=== PATIENT | male | born 1980 | race Caucasian/White ===

== ENCOUNTER 2022-03-09 18:25 | Inpatient (IN) | payer OTHER, SELFPAY ==
[2022-03-09] VITALS (27 sets, daily range): BP systolic 170–183; BP diastolic 94–159; PULSE 69–103; RESP 11–25; TEMP 36.8; O2SAT 94–100
--- NOTE | ~2022-03-09 | XR_ITS ---
EXAMINATION: XR chest 2V Exam Date/Time: 03/09/2022 18:40 OUTCOMES SPECIALIST HISTORY: chest pain, DEFIB 2013 Comparison: 03/27/2014. RESULT: Lines, tubes, and devices: Left chest defibrillator, with intact lead. Lungs and pleura: Clear. Cardiomediastinal silhouette: Stable. Other: No acute osseous or upper abdominal finding. IMPRESSION: No acute cardiopulmonary process. Reviewed, dictated and finalized at location K. OMES SPECIALIST
--- NOTE | 2022-03-09 18:37 | PC.NURSE ---
Called [facility] requesting STAT report of defibrillator firing. Provided phone number provided to call back.
--- NOTE | 2022-03-09 18:43 | ECG_ITS ---
Measurements Intervals [place] Rate: 100 P: 61 UT: 124 QRS: 13 QRSD: 121 T: 29 QT: 352 QTc: 455 Interpretive Statements SINUS TACHYCARDIA INCOMPLETE RIGHT BUNDLE BRANCH BLOCK ABNORMAL RHYTHM ECG NO PREVIOUS ECG AVAILABLE FOR COMPARISON Electronically Signed On 03-10-2022 16:17:36 [employer]WAY [employer]ARD ASSISTANT by Filiberto Aceves M.D.
--- NOTE | 2022-03-09 18:53 | PC.NURSE ---
[employer] called and states to place donut magnet over device until they arrive.
--- NOTE | 2022-03-09 18:56 | PC.NURSE ---
pt in xray at this time.
--- NOTE | 2022-03-09 20:10 | ED.ARRPALP ---
HPI - Arrhythmia/Palpitations General Chief Complaint: Arrhythmia/Palpitations Stated Complaint: firing defib Time Seen by Provider: 03/09/22 18:28 History of Present Illness HPI narrative: Patient is a 41-year-old male who presents ER with firing of his AICD. Patient has history of Brugada and has an AICD implanted. His job training supervisor is Dr. Raymond with [facility] in [place]. Patient had taken his dog out for a walk when he felt the discharge. He had no prodromal chest pain or lightheadedness or racing the heart. He has had his AICD fired previously for syncope but did not experience at this time. Device continue to fire and he called 911. Related Data Allergies Allergy/AdvReac Type Severity Reaction Status Date / Time poison yary extract Allergy Mild Unverified 03/11/14 19:10 [facility] Past Medical History Medical History (Updated 03/09/22 @ 22:48 by Chilo Bain MD) Brugada syndrome Surgical History Surgical History (Updated 03/09/22 @ 22:48 by Chilo Bain MD) AICD (automatic cardioverter/defibrillator) present Exam Narrative: GENERAL: Anxious-appearing, well-nourished, and in no acute distress. HEAD: Normocephalic, atraumatic. ENT: Mucous membranes moist. NECK: Supple. CHEST: Clear to auscultation. No respiratory distress. HEART: Regular rate and rhythm. Normal peripheral pulses. ABDOMEN: Soft, nontender, nondistended. EXTREMITIES: Normal range of motion. No edema. SKIN: Warm, diaphoretic, no rash. NEURO: Alert and oriented x3. PSYCH: Normal mood and affect. Course Course Emergency Course: Accepted for observation by Dr. Chambers. Reevaluation(s) Reevaluation #1: [employer] rep has been out to evaluate the patient. Patient has had 15 inappropriate shocks delivered due to lead artifact. The device has been turned off by the inside technical sales representative and he recommends patient have a LifeVest placed. I have been in touch with the LifeVest inside technical sales representative and have placed an order. Date: 03/09/22 Time: 21:13 Reevaluation #2: SPoke with Dr. Raymond, has no additional recommendations. Feels patient just needs observation till LifeVest can be placed and then he can help refer patient to EP physician to fix his lead. Does not feel patient requires transfer. Date: 03/09/22 Time: 22:16 Vital Signs Vital signs: Vital Signs Pulse Rate 103 H 03/09/22 18:20 Respiratory Rate 17 03/09/22 18:20 Pulse Oximetry 99 03/09/22 18:20 Temperature 98.2 F 03/09/22 22:45 Pulse Rate 85 03/09/22 22:45 Respiratory Rate 16 03/09/22 22:45 Blood Pressure 174/159 H 03/09/22 22:45 Pulse Oximetry 97 03/09/22 22:45 MDM - Arrhythmia/Palpitations Lab Data 03/09/22 20:36 03/09/22 20:36 Labs: Lab Results 03/09/22 03/09/22 03/09/22 Range/Units 20:36 20:36 20:36 WBC 8.8 (4.5-10.0) K/mm3 RBC 4.58 L (4.6-6.20) M/mm3 Hgb 14.1 (14.0-18.0) g/dL Hct 41.3 L (42.0-52.0) % MCV 90.2 (80-100) fl MCH 30.8 (26-34) pg MCHC 34.1 (32-36) g/dl RDW 12.9 (11.5-14.5) % Plt Count 178 (150-375) k/mm3 MPV 9.0 (7.4-10.4) fl Immature Gran % (Auto) 0.3 (0-0.5) % Neut % (Auto) 82.7 H (45.5-73.1) % Lymph % (Auto) 10.6 L (18.3-44.2) % [place] % (Auto) 5.7 (2.6-8.5) % Eos % (Auto) 0.5 (0-4.4) % Baso % (Auto) 0.2 (0.2-1.2) % Lymph # (Auto) 0.94 (0.9-3.2) K/mm3 [place] # (Auto) 0.5 (0.1-0.6) K/mm3 Eos # (Auto) 0.0 (0-0.3) K/mm3 Baso # (Auto) 0.0 (0.0-0.1) K/mm3 Abs Immat Gran (auto) 0.03 (0.00-0.031) K/mm3 Absolute Neuts (auto) 7.3 H (1.3-6.7) K/mm3 Absolute Nucleated RBC 0.0 (0.0-0.012) K/mm3 Nucleated RBC % 0.0 (0.0-0.2) % PT 13.0 (11.1-14.7) Seconds INR 1.0 APTT 20.0 L (22.3-36.8) SECONDS Sodium 137 (137-145) mmol/L Potassium 3.8 (3.4-5.0) mmol/L Chloride 110 H (98-107) mmol/L Carbon Dioxide 22 (22-30) mmol/L Anion Gap 5 L (8-16) mmo
[2022-03-09 20:41] LABS: Basophils Percent Auto 0.2 % (0.2-1.2); Eosinophils Percent Auto 0.5 % (0-4.4); Hematocrit 41.3 % (42.0-52.0); Hemoglobin 14.1 g/dL (14.0-18.0); Immature Granulocyte Absolute 0.03 K/mm3 (0.00-0.031); Immature Granulocyte Percent A 0.3 % (0-0.5); Lymphocytes Absolute Auto 0.94 K/mm3 (0.9-3.2); Lymphocytes Percent Auto 10.6 % (18.3-44.2); Mean Corpuscular HGB Conc 34.1 g/dl (32-36); Mean Corpuscular Hemoglobin 30.8 pg (26-34); Mean Corpuscular Volume 90.2 fl (80-100); Monocytes Absolute Auto 0.5 K/mm3 (0.1-0.6); Monocytes Percent Auto 5.7 % (2.6-8.5); Neutrophils Absolute Auto 7.3 K/mm3 (1.3-6.7); Neutrophils Percent Auto 82.7 % (45.5-73.1); Platelet Count Result 178 k/mm3 (150-375); Red Blood Count 4.58 M/mm3 (4.6-6.20); Red Cell Distribution Width 12.9 % (11.5-14.5); White Blood Count 8.8 K/mm3 (4.5-10.0)
[2022-03-09 20:53] LABS: Alanine Aminotransferase 31 U/L (6-50); Albumin Level 4.3 g/dL (3.5-5.1); Alkaline Phosphatase 71 U/L (38-126); Anion Gap 5 mmol/L (8-16); Aspartate Amino Transferase 39 U/L (17-59); Bilirubin,Total 0.4 mg/dL (0.2-1.3); Blood Urea Nitrogen 18 mg/dL (9-20); Calcium 8.1 mg/dL (8.4-10.2); Carbon Dioxide 22 mmol/L (22-30); Chloride 110 mmol/L (98-107); Estimated CRCL calculation 131 ml/min; Estimated Glomerular Filt Rate > 60; Glucose 104 mg/dL (65-110); Potassium 3.8 mmol/L (3.4-5.0); Sodium 137 mmol/L (137-145)
[2022-03-09 21:19] LABS: Troponin I 0.265 ng/mL (0.000-0.034)
--- NOTE | 2022-03-09 21:29 | PC.NURSE ---
Pt refused covid/flu swab
--- NOTE | 2022-03-09 21:38 | PC.NURSE ---
Patient refused COVID swab with ARIAS Esposito in the room. Patient states he will just wait to get a vest because he will not have a COVID swab.
[2022-03-09 23:22] LABS: Troponin I 0.447 ng/mL (0.000-0.034)
--- NOTE | 2022-03-09 23:28 | PC.NURSE ---
Patient states he will only do a throat COVID swab ED Charge aware so is EDP
[2022-03-10] VITALS (13 sets, daily range): BP systolic 146–180; BP diastolic 79–103; PULSE 59–93; RESP 14–33; TEMP 36.2–36.7; O2SAT 96–100; BMI 34.4
--- NOTE | 2022-03-10 00:52 | PC.NURSE ---
03/10/2022 @ 0049 ALL DOCUMENTATION REQUESTED BY [employer] FAXED TO REQUESTED BY REP WHALEN ([phone]).
--- NOTE | 2022-03-10 01:06 | ADMGEN ---
This patient, Eran German, was admitted to IMU Room 201-01. Patient/family oriented to hospital policies and general routines including ID bracelet, bed and alarms, visiting hours, pain management, procedures, bathroom and other care routines, personal items, smoking policy, room service/diet, and visiting hours. Information on how to activate the Rapid Response Team has been discussed. Patient/Family are encouraged to report perceived risks to care and to ask questions if they do not understand what they are told or what they should do.
[2022-03-10 02:20] LABS: Troponin I 0.529 ng/mL (0.000-0.034)
--- NOTE | 2022-03-10 09:45 | PC.NURSE ---
Plan of care discussed. Life Vest employee in route. Patient to be discharged once
--- NOTE | 2022-03-10 13:51 | PM.CNCAR ---
Assessment and Plan Assessment and plan (1) Inappropriate discharge of implantable cardioverter-defibrillator (ICD): Code(s): T82.198A - Other mechanical complication of other cardiac electronic device, initial encounter Status: Acute Plan LifeVest ordered. Patient can be discharged after he receives the lifevest. History of Present Illness History of Present Illness Consult date/time: 03/10/22 13:51 Requesting physician: Chilo Bain MD Consult reason: Other (ICD shocks) Reason For Visit: Inappropriate discharge of AICD Narrative: Patient is a 41-year-old male with a history of CAD, history of ventricular fibrillation cardiac arrest due to Brugada syndrome s/p ICD who presented with 15 ICD shocks. Patient states he was feeling completely fine, and then all of a sudden felt ICD shocks when he was out walking his dog. [employer] rep interrogated device in the ER and interrogation shows ICD shocks were due to lead malfunction. The device has been deactivated by the rep. Patient's EP physician, Dr. Raymond, has been made aware and recommend LifeVest with outpatient EP follow-up. Review of Systems Review of Systems: 12-point ROS obtained. Negative, unless stated in HPI. [facility] Past Medical History Medical History Brugada syndrome Surgical History Surgical History AICD (automatic cardioverter/defibrillator) present Family History Family History Father Hypertension Sibling Leukemia Social History Social History Smoking status: Former smoker Alcohol intake: current Drinks per week: 1 Substance use: current Substance use type: does not use Lack of Transportation: No Lack of Food: Never True Current Housing: I Have Housing Concerned About Future Housing: No Difficulty Paying Gas/Electric Bills: No Difficulty Paying for Meds: No Currently Unemployed: No Education: High School Diploma/GED Difficulty w/ Childcare or Family Care: No Spiritual care concerns: No Meds Home Medications and Allergies Home Medications Medication Instructions Recorded Confirmed Type aspirin 81 mg tablet,delayed 81 mg PO DAILY 03/10/22 03/10/22 History release (Adult Low Dose Aspirin) carvedilol 25 mg tablet 25 mg PO BID 03/10/22 03/10/22 History lisinopril 40 mg tablet 40 mg PO DAILY 03/10/22 03/10/22 History omega-3 fatty acids-fish oil 684 1 cap PO DAILY 03/10/22 03/10/22 History mg-1,200 mg capsule,delayed release simvastatin 20 mg tablet 20 mg PO QHS 03/10/22 03/10/22 History Allergies Allergy/AdvReac Type Severity Reaction Status Date / Time poison yary extract Allergy Mild Rash Verified 03/10/22 05:16 Vital Signs Vital Signs - 24 hr 03/09/22 18:20 03/09/22 19:30 03/09/22 19:06 Temperature Pulse Rate 103 H 75 81 Respiratory Rate 17 20 25 H Blood Pressure Pulse Oximetry 99 95 98 Oxygen Delivery 03/09/22 19:15 03/09/22 19:45 03/09/22 20:00 Temperature Pulse Rate 74 72 78 Respiratory Rate 18 15 15 Blood Pressure Pulse Oximetry 98 97 97 Oxygen Delivery 03/09/22 20:03 03/09/22 20:15 03/09/22 20:30 Temperature Pulse Rate 70 77 69 Respiratory Rate 13 22 H 14 Blood Pressure 171/115 H Pulse Oximetry 94 97 96 Oxygen Delivery 03/09/22 20:32 03/09/22 20:45 03/09/22 21:25 Temperature Pulse Rate 70 71 80 Respiratory Rate 14 16 18 Blood Pressure 175/103 H 170/103 H Pulse Oximetry 97 97 97 Oxygen Delivery 03/09/22 22:45 03/09/22 21:00 03/09/22 21:02 Temperature 36.8 C Pulse Rate 85 69 74 Respiratory Rate 16 18 19 Blood Pressure 174/159 H 170/103 H Pulse Oximetry 97 99 99 Oxygen Delivery 03/09/22 21:15 03/09/22 21:53 03/09/22 22:00 Temperature Pulse Rate 76 77 71 Respiratory Rate 13 17 17 [place]
--- NOTE | 2022-03-10 17:13 | PM.DS ---
DS: Admitting Diagnosis Discharge Date 03/10/2022 Admitting Diagnosis Defibrillator firing DS: Discharge Diagnosis Discharge Diagnosis (1) Inappropriate discharge of implantable cardioverter-defibrillator (ICD): Code(s): T82.198A - Other mechanical complication of other cardiac electronic device, initial encounter Status: Acute (2) Elevated troponin: Code(s): R77.8 - Other specified abnormalities of plasma proteins Status: Acute Plan Patient has elevated troponin due to inappropriate firing of his defibrillator. Defibrillator has been inactivated. Patient being monitored in IMU until LifeVest can be placed prior to discharge. The patient will then be referred to his primary liquid natural gas plant operator in [facility] for ET evaluation up in [place]. There is no need for cardiology consultation during the patient's current hospitalization as a LifeVest has already been ordered. There is no need to trend troponins given the patient's troponin elevation is due to known miss firing of his defibrillator. Patient can be discharged once LifeVest has been obtained and placed. DS: Summary Hospital Course Reason for hospitalization: Defibrillator firing Narrative: 41-year-old male with past medical history of bronchitis in room with history of cardiac arrest 7 years ago with subsequent defibrillator placement.? Patient had no firings of his defibrillator prior to today.? He knows that he at least had 7 firings of his defibrillator when he was out walking his dog.? He had no prodrome all symptoms, chest pain, shortness breast, lightheadedness or racing of his heart.? His defibrillator was interrogated in the ER and it was found that his defibrillator was inappropriately firing.? His defibrillator was turned off by the manufacture.? His troponin was elevated but this was presumed to be due to repeated firings of his defibrillator.? The patient's liquid natural gas plant operator at [facility] was contacted and stated he wanted the patient have a life vest in place.? There was no need for cardiology consult here as the order for the life vest had already been placed by the ER physician.? The patient otherwise is not having any symptoms.? On exam he did have a crowded posterior oropharynx and does admit the does occasionally snore.? He denies significant daytime fatigue or sleepiness.? He has not had any lower extremity swelling, orthopnea or paroxysmal nocturnal dyspnea. Hospital Course: patient had inappropriate discharge of ICD, patient was seen by liquid natural gas plant operator recommended LifeVest and patient can be discharged to follow up with his liquid natural gas plant operator. patient is clinically stable, will discharge patient today. Time Spent with Patient Time attestation: Total time spent providing and/or coordinating discharge services: Exam Narrative: Patient is comfortable, NAD HEENT: eyes are clear and none icteric LUNGS:CTA HEART: RR S1S2 ABD: BS+, Soft and nontender Lower extremities: no edema SKIN: nonjaundiced Neuro: grossly intact. DS: Data Data Completed and Pending Labs on day of discharge: Labs from last 24 hours 03/10/22 03/09/22 03/09/22 01:26 22:34 20:36 WBC RBC Hgb Hct MCV MCH MCHC RDW Plt Count MPV Immature Gran % (Auto) Neut % (Auto) Lymph % (Auto) [place] % (Auto) Eos % (Auto) Baso % (Auto) Lymph # (Auto) [place] # (Auto) Eos # (Auto) Baso # (Auto) Abs Immat Gran (auto) Absolute Neuts (auto) Absolute Nucleated RBC Nucleated RBC % PT INR APTT Sodium Potassium Chloride Carbon Dioxide Anion Gap BUN Creatinine Estim Creat Clear Calc Estimated GFR Glucose Calcium Total Bilirubin AST ALT Alkaline Phosphatase Troponin I 0.529 H* 0.447 H* D 0.265 H* Total Protein Albumin 03/09/22 03/09/22 03/09/22 20:36 20:36 20:36 WBC 8.8 RBC 4.58 L Hgb 14.1 Hct
--- NOTE | 2022-03-19 20:34 | PM.IMHP ---
H&P: HPI History of Present Illness Date/Time: 03/10/22 06:50 Chief Complaint: Defibrillator firing Narrative: 41-year-old male with past medical history of bronchitis in room with history of cardiac arrest 7 years ago with subsequent defibrillator placement. Patient had no firings of his defibrillator prior to today. He knows that he at least had 7 firings of his defibrillator when he was out walking his dog. He had no prodrome all symptoms, chest pain, shortness breast, lightheadedness or racing of his heart. His defibrillator was interrogated in the ER and it was found that his defibrillator was inappropriately firing. His defibrillator was turned off by the manufacture. His troponin was elevated but this was presumed to be due to repeated firings of his defibrillator. The patient's industrial engineering manager at [facility] was contacted and stated he wanted the patient have a life vest in place. There was no need for cardiology consult here as the order for the life vest had already been placed by the ER physician. The patient otherwise is not having any symptoms. On exam he did have a crowded posterior oropharynx and does admit the does occasionally snore. He denies significant daytime fatigue or sleepiness. He has not had any lower extremity swelling, orthopnea or paroxysmal nocturnal dyspnea. This is a late entry. Patient was seen and examined on 03/10/2022 just before 07:00am. Review of Systems Review of Systems: 10 systems were reviewed with pertinent positives and negatives per HPI. Except as documented in the HPI, all other systems were reviewed and are negative. [facility] Past Medical History Medical History Brugada syndrome Surgical History Surgical History AICD (automatic cardioverter/defibrillator) present Family History Family History Father Hypertension Sibling Leukemia Social History Social History Smoking status: Former smoker Alcohol intake: current Drinks per week: 1 Substance use: current Substance use type: does not use Lack of Transportation: No Lack of Food: Never True Current Housing: I Have Housing Concerned About Future Housing: No Difficulty Paying Gas/Electric Bills: No Difficulty Paying for Meds: No Currently Unemployed: No Education: High School Diploma/GED Difficulty w/ Childcare or Family Care: No Spiritual care concerns: No Meds Home Medications and Allergies Home Medications Medication Instructions Recorded Confirmed Type aspirin 81 mg tablet,delayed 81 mg PO DAILY 03/10/22 03/10/22 History release (Adult Low Dose Aspirin) carvedilol 25 mg tablet 25 mg PO BID 03/10/22 03/10/22 History lisinopril 40 mg tablet 40 mg PO DAILY 03/10/22 03/10/22 History omega-3 fatty acids-fish oil 684 1 cap PO DAILY 03/10/22 03/10/22 History mg-1,200 mg capsule,delayed release simvastatin 20 mg tablet 20 mg PO QHS 03/10/22 03/10/22 History Allergies Allergy/AdvReac Type Severity Reaction Status Date / Time poison yary extract Allergy Mild Rash Verified 03/10/22 05:16 Vital Signs Temp 97.8 pulse 63 respiratory rate 16 blood pressure 146/79 pulse ox 98% on room air Exam Narrative: Weight 115.4 kg BMI 34.5 Const: Other: No acute distress, obese HENMT: Other: Crowded posterior oropharynx, mucous membranes are moist, no oral pharyngeal erythema Eyes: Other: Pupils are equal and reactive, no scleral icterus, no conjunctival pallor Neck: Other: Large neck circumference, supple, trachea midline Chest: Other: Clear to auscultation bilaterally, no increased work of breathing Cardio: Other: Regular rate, regular rhythm, 2+ bilateral radial pedal pulses,, no murmurs GI: Other: Soft, nontender, nondistended, positive
== END 2022-03-10 17:23 | disposition home or self-care (01) | DRG 206 ==
LOC: ANHED 22:48 → ANHIMU 03-10 00:25
PROVIDERS: Admitting Provider Internal Medicine; Emergency Provider Emergency Medicine; Visit Provider Family Medicine
DX: T82.198A Other mechanical complication of other cardiac electronic device, initial encounter (principal); I25.10 Atherosclerotic heart disease of native coronary artery without angina pectoris; I49.8 Other specified cardiac arrhythmias; Z87.891 Personal history of nicotine dependence
CPT/HCPCS: 36415; 71046; 80053; 84484; 85025; 85610; 85730; 93005; 99285

== ENCOUNTER 2022-08-13 14:07 | Observation (INO) | payer OTHER, SELFPAY ==
--- NOTE | ~2022-08-13 | US_ITS ---
EXAMINATION: US paracentesis abd w/image DATE: 08/13/2022 19:51 INDICATION: Ascites. TECHNIQUE: The procedure and its risks and benefits were discussed with the patient. Potential risks discussed included bleeding and infection. The skin was prepped and draped in sterile fashion. 1% lid ocaine was used for local anesthesia. Under ultrasound guidance, a 5 Fr catheter with trochar was adv anced into the ascites in the right upper quadrant. Fluid was aspirated into vacuum bottles. The cath eter was removed, and a dressing was applied. There were no immediate complications. FINDINGS: Ultrasound images demonstrate ascites and the catheter within the fluid. IMPRESSION: 1. Successful ultrasound-guided paracentesis yielding 250 mL of clear yellow fluid. Reviewed, dictated and finalized at location A. IMPRESSION: 1. Successful ultrasound-guided paracentesis yielding 250 mL of clear yellow f luid.
--- NOTE | ~2022-08-13 | CT_ITS ---
EXAMINATION: CT abdomen pelvis w con DATE: 08/13/2022 17:14 INDICATION: Diffuse upper abdominal pain TECHNIQUE: Computed tomography (CT) of the abdomen and pelvis was performed with 100 mL Omnipaque-350 intravenous contrast. Automated exposure control and iterative reconstruction technique were employe d. The dose-length product was 942.76 mGy-cm. COMPARISON: None FINDINGS: 3 mm right lower lobe pulmonary nodule. There appears be re-4 mm likely embolized metallic foreign bhargavi dy within a pulmonary artery and the anterobasilar segment of the right lower lobe. Heart size is nor mal. No pericardial or pleural effusion. Cardiac pacemaker/defibrillator lead with distal tip near th e apex of the right ventricle. Small to moderate amount of ascites scattered throughout the abdomen a nd pelvis. This has relatively simple fluid attenuation in the upper abdomen but with higher attenuat ion at the deep pelvis suggesting an exudative process or hemoperitoneum. No free intraperitoneal gas or abscess. Liver, gallbladder, spleen, pancreas, bilateral adrenal glands and left kidney are mukesh l. 1.5 cm right renal cyst. Scattered fluid throughout the small bowel without dilation to suggest ob struction. There are multiple loops of ileum in the right abdomen demonstrating edematous-appearing w all thickening consistent with an enteritis. Colon and appendix are normal. Bladder is normal. No pat hologically enlarged abdominal or pelvic lymphadenopathy. Bones are unremarkable. IMPRESSION: 1. Edematous-appearing wall thickening involving multiple loops of small bowel throughout the abdomen and pelvis with ileal predominance consistent with a nonspecific enteritis which is most likely infe ctious or inflammatory in etiology. 2. Small to moderate amount of complex ascites with increased density in the dependent pelvis which c ould be either infectious/inflammatory in etiology or hemoperitoneum. 3. Small likely embolized metallic foreign body in the right lower lobe. Reviewed, dictated and finalized at location A. IMPRESSION: 1. Edematous-appearing wall thickening involving multiple loops of small bowel throughout the abdomen and pelvis with ileal predominance consistent with a non specific enteritis which is most likely infectious or inflammatory in etiology. 2. Small to moderate amount of complex ascites with increased density in the de pendent pelvis which could be either infectious/inflammatory in etiology or hem operitoneum. 3. Small likely embolized metallic foreign body in the right lower lobe.
[2022-08-13 14:16] VITALS: BP 154/109; PULSE 103; RESP 18; TEMP 36.5; O2SAT 97
--- NOTE | 2022-08-13 16:03 | ED.NAVMDI ---
HPI - Nausea/Vomiting/Diarrhea General Chief complaint: Nausea/Vomiting/Diarrhea <RIKY Ovalle Last Filed: 08/13/22 19:12> Stated complaint: GI upset, bloating <RIKY Ovalle Last Filed: 08/13/22 19:12> Time Seen by Provider: 08/13/22 15:46 <RIKY Ovalle Last Filed: 08/13/22 19:12> History of Present Illness HPI Narrative: Patient is a 42-year-old male here for evaluation of epigastric abdominal pain for the past 4 days. Patient states that the pain is intermittent in nature, described as a cramping bloating sensation. He also reports numerous episodes of diarrhea, but no nausea or vomiting. No history of abdominal surgeries. Patient took some Imodium with improvement of his diarrhea but was hesitant to keep taking this because of his history of Brugada syndrome and he was unaware of this would precipitate arrhythmias. No recent antibiotic use. <RIKY Ovalle Last Filed: 08/13/22 19:12> Related Data Home medications: Home Medications Medication Instructions Recorded Confirmed aspirin 81 mg tablet,delayed 81 mg PO DAILY 03/10/22 08/13/22 release (Adult Low Dose Aspirin) carvedilol 25 mg tablet 25 mg PO BID 03/10/22 08/13/22 lisinopril 40 mg tablet 40 mg PO DAILY 03/10/22 08/13/22 omega-3 fatty acids-fish oil 684 1 cap PO DAILY 03/10/22 08/13/22 mg-1,200 mg capsule,delayed release simvastatin 20 mg tablet 20 mg PO QHS 03/10/22 08/13/22 <RIKY Ovalle Last Filed: 08/13/22 19:12> Allergies/Adverse reactions: Allergies Allergy/AdvReac Type Severity Reaction Status Date / Time poison yary extract Allergy Mild Rash Verified 03/10/22 05:16 <RIKY Ovalle Last Filed: 08/13/22 19:12> Review of Systems Review of Systems: Gen: Denies fevers or chills Eyes: Denies eye pain or visual change ENT: Denies congestion Respiratory: Denies shortness of breath or cough CV: Denies chest pain or palpitations GI: Reports abdominal pain and diarrhea : denies burning, urgency, frequency or hematuria Musculoskeletal: Denies back pain or muscle pain Neuro: Denies numbness, tingling, weakness or focal weakness Skin: Denies rash Except as documented, all other systems reviewed and negative <Amara Davis PA-C - Last Filed: 08/13/22 19:12> [facility] Past Medical History Medical History: Medical History (Updated 08/14/22 @ 00:07 by Jane Erickson MD) Brugada syndrome <Amara Davis PA-C - Last Filed: 08/13/22 19:12> Surgical History Surgical History: Surgical History AICD (automatic cardioverter/defibrillator) present <Amara Davis PA-C - Last Filed: 08/13/22 19:12> Family History Family History: Family History (Updated 08/13/22 @ 22:37 by Elida Villar RN) Father Hypertension Sibling Leukemia Other Colon cancer <Amara Davis PA-C - Last Filed: 08/13/22 19:12> Social History Social History: Social History Smoking status: Former smoker Tobacco type: cigarettes Alcohol intake: current Drinks per week: 8 Substance use: never Substance use type: does not use Lack of Transportation: No Lack of Food: Never True Current Housing: I Have Housing Concerned About Future Housing: No Difficulty Paying Gas/Electric Bills: No Difficulty Paying for Meds: No Currently Unemployed: No Education: High School Diploma/GED Difficulty w/ Childcare or Family Care: No Spiritual care concerns: No <Amara Davis PA-C - Last Filed: 08/13/22 19:12> Exam Narrative: APPEARANCE: Well appearing, no pain in distress, well-nourished. Head: Normocephalic and atraumatic. EYES: PERRLA/EOMI, conjunctivae clear NOSE: No nasal drainage EARS: External ear normal in appearance THROAT: Orophar
--- NOTE | 2022-08-13 16:04 | PC.NURSE ---
Pt ambulates into ER c/o n/d and abd pain. States on Wednesday evening after eating dinner pt felt like he ate too fast and felt his meal sitting in his stomach. States he was was also having difficulties releasing gas that night. States the next morning he awoke and was able to belch and have flatulence, but started having stomach pain and feeling very nauseous. States the pain has been off and on. Denies any vomiting. States he took Imodium Wednesday night and had relief from the diarrhea until 1300 today. Pain is in the URQ and describes it as pressure that ramps up and relieves it self on it's on.
--- NOTE | 2022-08-13 16:20 | PC.NURSE ---
While attempting an IV, pt became dizzy, light headed, and nauseous. Vitals obtained.
[2022-08-13 16:22] VITALS: BP 79/45; PULSE 65; RESP 18; O2SAT 98
[2022-08-13] MEDS: SODIUM CHLORIDE 0.9% IV 1,000 ML 999 ML IV CONT ×2 (16:45→18:06)
[2022-08-13] MEDS: DICYCLOMINE HCL INJ 20 MG/2 ML VIAL IM (16:45)
[2022-08-13 16:52] LABS: Basophils Percent Auto 0.4 % (0.2-1.2); Eosinophils Absolute Auto 0.3 K/mm3 (0-0.3); Eosinophils Percent Auto 2.7 % (0-4.4); Hematocrit 47.1 % (42.0-52.0); Hemoglobin 16.6 g/dL (14.0-18.0); Immature Granulocyte Absolute 0.04 K/mm3 (0.00-0.031); Immature Granulocyte Percent A 0.4 % (0-0.5); Lymphocytes Absolute Auto 1.25 K/mm3 (0.9-3.2); Lymphocytes Percent Auto 12.8 % (18.3-44.2); Mean Corpuscular HGB Conc 35.2 g/dl (32-36); Mean Corpuscular Hemoglobin 31.3 pg (26-34); Mean Corpuscular Volume 88.7 fl (80-100); Mean Platelet Volume 9.9 fl (7.4-10.4); Monocytes Absolute Auto 1.1 K/mm3 (0.1-0.6); Neutrophils Absolute Auto 7.1 K/mm3 (1.3-6.7); Neutrophils Percent Auto 72.7 % (45.5-73.1); Platelet Count Result 263 k/mm3 (150-375); Red Blood Count 5.31 M/mm3 (4.6-6.20); Red Cell Distribution Width 12.1 % (11.5-14.5); White Blood Count 9.8 K/mm3 (4.5-10.0)
[2022-08-13 16:58] LABS: Alanine Aminotransferase 20 U/L (6-50); Albumin Level 4.5 g/dL (3.5-5.1); Alkaline Phosphatase 39 U/L (38-126); Anion Gap 10 mmol/L (8-16); Aspartate Amino Transferase 26 U/L (17-59); Bilirubin,Total 0.7 mg/dL (0.2-1.3); Blood Urea Nitrogen 20 mg/dL (9-20); Calcium 8.6 mg/dL (8.4-10.2); Carbon Dioxide 24 mmol/L (22-30); Chloride 99 mmol/L (98-107); Estimated Glomerular Filt Rate > 60; Glucose 123 mg/dL (65-110); Lipase 47 U/L (23-300); Sodium 133 mmol/L (137-145)
[2022-08-13 17:08] LABS: Appearance Urine Cloudy (Clear); Bacteria Urine None Seen /hpf; Bilirubin Urine 2+ (Negative); Blood Urine Negative (Negative); Color Urine Dark Yellow (Yellow); Glucose Urine UA Negative (Negative); Ketones Urine Trace mg/dL (Negative); Leukocyte Esterase Ur Trace LEU/UL (Negative); Mucus Urine Present /lpf; Need Manual Microscopic Reviewed; Nitrate Urine Negative (Negative); Protein Urine 1+ mg/dL (Negative); RBC Urine 0-2 /hpf (0-2); Squamous Epithelial Cell Urine None seen /hpf (Few); WBC Urine 0-5 /hpf
[2022-08-13 17:09] LABS: Add Urine Microscopic? YES
[2022-08-13 18:03] VITALS: BP 101/59; PULSE 63; RESP 16; O2SAT 96
[2022-08-13 18:18] LABS: INR 1.1; Partial Thromboplastin Time 27.4 SECONDS (22.3-36.8); Prothrombin Time 14.9 Seconds (11.1-14.7)
[2022-08-13 18:31] LABS: Lactic Acid Reflex 1.4 mmol/L (0.7-2.0)
--- NOTE | 2022-08-13 18:40 | PC.NURSE ---
Ultrasound called and stated eta of 15-20 min and will come get patient for paracentesis. Pt and LINDSEY Maloney made aware.
[2022-08-13] MEDS: PIPERACILLN/TAZ 3.375GM/NS50ML 3.375 GM/50 ML BAG IVPB (18:45)
[2022-08-13 19:58] VITALS: BP 147/75; PULSE 63; RESP 17; O2SAT 100
--- NOTE | 2022-08-13 20:28 | PM.IMHP ---
H&P: HPI History of Present Illness Date/Time: 08/13/22 20:28 Chief Complaint: Abdominal pain Narrative: This is a 42-year-old male with past medical history significant for Brugada criteria, AICD implantation, presents to the emergency room due to abdominal pain localized to the periumbilical area it is cramping accompanied by watery diarrhea 2-4 bowel movements for the last 2 days or so, patient denies any fevers, rigors, chills, phlegm or blood in the stools, no coffee-ground emesis, no hematemesis, no melena, no bright red blood per rectum, no nausea, no vomiting, no weight loss, no recent travel, no camping. preliminary workup was significant for CT of abdomen and pelvis was reported as: EXAMINATION: CT abdomen pelvis w con DATE: 08/13/2022 17:14 INDICATION: Diffuse upper abdominal pain TECHNIQUE: Computed tomography (CT) of the abdomen and pelvis was performed with 100 mL Omnipaque-350 intravenous contrast. Automated exposure control and iterative reconstruction technique were employed. The dose-length product was 942.76 mGy-cm. COMPARISON: None FINDINGS: 3 mm right lower lobe pulmonary nodule. There appears be re-4 mm likely embolized metallic foreign body within a pulmonary artery and the anterobasilar segment of the right lower lobe. Heart size is normal. No pericardial or pleural effusion. Cardiac pacemaker/defibrillator lead with distal tip near the apex of the right ventricle. Small to moderate amount of ascites scattered throughout the abdomen and pelvis. This has relatively simple fluid attenuation in the upper abdomen but with higher attenuation at the deep pelvis suggesting an exudative process or hemoperitoneum. No free intraperitoneal gas or abscess. Liver, gallbladder, spleen, pancreas, bilateral adrenal glands and left kidney are normal. 1.5 cm right renal cyst. Scattered fluid throughout the small bowel without dilation to suggest obstruction. There are multiple loops of ileum in the right abdomen demonstrating edematous-appearing wall thickening consistent with an enteritis. Colon and appendix are normal. Bladder is normal. No pathologically enlarged abdominal or pelvic lymphadenopathy. Bones are unremarkable. IMPRESSION: 1. Edematous-appearing wall thickening involving multiple loops of small bowel throughout the abdomen and pelvis with ileal predominance consistent with a nonspecific enteritis which is most likely infectious or inflammatory in etiology. 2. Small to moderate amount of complex ascites with increased density in the dependent pelvis which could be either infectious/inflammatory in etiology or hemoperitoneum. 3. Small likely embolized metallic foreign body in the right lower lobe. Review of Systems Review of Systems: abdominal pain, watery diarrhea Constitutional: Constitutional: Denies chills, Denies fatigue, Denies fever(s), Denies malaise, Denies night sweats, Denies weakness and Denies weight loss Eyes: Eyes: Denies change in vision ENT: Denies dysphagia, Denies vertigo, Denies dizziness and Denies odynophagia Cardiovascular: Cardiovascular: Denies chest pain, Denies leg edema, Denies radiating jaw, neck or arm pain, Denies palpitations and Denies dyspnea Respiratory: Respiratory: Denies cough, Denies excessive phlegm production and Denies dyspnea Gastrointestinal: Gastrointestinal: Reports abdominal pain, Denies melena, Reports bloating, Denies hematochezia, Reports GI cramping, Denies dyspepsia, Denies heartburn, Reports diarrhea, Reports loose stools, Denies nausea and Denies vomiting Genitourinary: Genitourinary: Denies dysuria and Denies flank pain Musculoskeletal: Musculoskeletal: Denies myalgias Integumentary/Breasts: Skin/Breast: Denies rash Neurologic: Denies focal weakness and Denies Sensory deficit (Neuro) Psychiatric: Psychiatric: Reports no additional psychiatric complaints and Reports as per HPI Endocrine: Endocrine: Denies cold intolerance, Denies fatigue, Denies flus
[2022-08-13 20:35] LABS: Hepatitis B Surface Antigen Negative (Negative)
[2022-08-13 20:41] LABS: HAV RESULT Negative (Negative); Hepatitis B Core IgM Result Negative (Negative)
[2022-08-13 20:53] LABS: Hepatitis C Virus Antibody Negative (Negative)
--- NOTE | 2022-08-13 20:54 | PC.NURSE ---
Attempted to call report but receiving RN unavailable. Also room is not cleaned. rotary envelope machine operator notified.
[2022-08-13 21:34] LABS: Appearance Peritoneal Fluid Hazy (Clear); Color Peritoneal Fluid Yellow (Colorless); Source Peritoneal Fluid Peritoneal Fluid
[2022-08-13 21:35] LABS: Eosinophils Peritoneal Fluid 1 %; Lymphocytes Peritoneal Fluid 10 %; Macrophages Peritoneal Fluid 70 %; Neutrophils Peritoneal Fluid 19 % (0-25); Nucleated Cells Peritoneal Flu 657 /uL (0-500); RBC Peritoneal Fluid < 2000 /uL (0-100000)
[2022-08-13 22:05] VITALS: O2SAT 100
[2022-08-13 22:15] VITALS: BP 135/84; PULSE 67; RESP 16; TEMP 36.9; O2SAT 100
[2022-08-13 22:16] VITALS: BMI 34.0
--- NOTE | 2022-08-13 22:21 | ADMGEN ---
This patient, Eran German, was admitted to Medical Room 246-01. Patient/family oriented to hospital policies and general routines including ID bracelet, bed and alarms, visiting hours, pain management, procedures, bathroom and other care routines, personal items, smoking policy, room service/diet, and visiting hours. Information on how to activate the Rapid Response Team has been discussed. Patient/Family are encouraged to report perceived risks to care and to ask questions if they do not understand what they are told or what they should do.
[2022-08-13] MEDS: SODIUM CHLORIDE 0.9% IV 1,000 ML 150 ML IV CONT (22:55)
[2022-08-14] MEDS: SIMVASTATIN 20 MG TABLET PO (00:52)
[2022-08-14 06:00] VITALS: BP 127/70; PULSE 56; RESP 16; TEMP 36.6; O2SAT 99
--- NOTE | 2022-08-14 07:50 | PM.IMPN ---
Progress Note: A&P Assessment and Plan (1) Ascites: Code(s): R18.8 - Other ascites Status: Acute Assessment and Plan: status post dx paracentesis, cell count showed above 600 nucleated cells uncharacterized cultures pending, neutrophil count less than 25% patient is currently on Rocephin for BP prophylaxis LFTs wnl, check CRP, PCT, LA (2) Enteritis: Code(s): K52.9 - Noninfective gastroenteritis and colitis, unspecified Status: Acute Assessment and Plan: stool cultures are pending ova and parasite pending viral PCR pending supportive care monitor off IVF while on CLD for now (3) Elevated troponin: Code(s): R77.8 - Other specified abnormalities of plasma proteins Status: Acute Assessment and Plan: patient with history of Brugada syndrome, status post AICD placement chest pain-free, trend troponins, check ECG (4) Brugada syndrome: Code(s): I49.8 - Other specified cardiac arrhythmias Status: Acute Assessment and Plan: status post AICD (5) Watery diarrhea: Code(s): R19.7 - Diarrhea, unspecified Status: Acute Assessment and Plan: stool studies pending supportive care continue to monitor Plan DVT prophylaxis with SCDs GI prophylaxis not indicated Code status full code Subjective Date/time seen: 08/14/22 07:50 Interval history: No overnight events noted. No chest pain or shortness of breath. No nausea, vomiting or diarrhea. No fevers or chills. Review of Systems Review of Systems: 12 point review of systems was assessed and was negative except as noted in the HPI Exam Narrative: General: No acute distress, alert and oriented per baseline HEENT: Atraumatic, normocephalic, mucous membranes moist CV: Regular rate and rhythm, S1, S2 Lungs: Clear to auscultation bilaterally, no rales or crackles noted, no wheezes, good air entry Abdomen: Soft, nontender, nondistended Extremities: Normal to inspection Skin: No rashes noted, no lesions or wounds seen Psych: Euthymic, normal affect Objective Data Vital Signs Vital Signs: Vital Signs - 24 hr 08/13/22 14:16 08/13/22 16:22 08/13/22 18:03 Temperature 97.7 F Pulse Rate 103 H 65 63 Respiratory Rate 18 18 16 Blood Pressure 154/109 H 79/45 L 101/59 L Pulse Oximetry 97 98 96 Oxygen Delivery Room Air 08/13/22 19:58 08/13/22 22:15 08/13/22 22:05 Temperature 98.4 F Pulse Rate 63 67 Respiratory Rate 17 16 Blood Pressure 147/75 H 135/84 Pulse Oximetry 100 100 100 Oxygen Delivery Room Air 08/14/22 06:00 Temperature 97.8 F Pulse Rate 56 L Respiratory Rate 16 Blood Pressure 127/70 Pulse Oximetry 99 Oxygen Delivery Intake/Output Intake/Output: Intake & Output 08/11/22 08/12/22 08/13/22 08/14/22 23:59 23:59 23:59 23:59 Intake Total 2049 250 Output Total Balance 2049 - Meds/Results Medications: Active Medications Generic Name Dose Route Start Last Admin Trade Name Freq PRN Reason Stop Dose Admin Aspirin 81 mg 08/14/22 09:00 Aspirin 81 Mg Enteric Tablet PO DAILY [facility] Carvedilol 25 mg 08/14/22 09:00 Carvedilol 25 Mg Tablet PO Q12HR [facility] Dicyclomine HCl 20 mg 08/13/22 18:41 Dicyclomine Hcl Inj 20 Mg/2 Ml Vial IM Q6H PRN Abdominal Cramping Fish Oil 1 gm 08/14/22 09:00 [place] 3 Polyunsat Fatty Acids 1 Gm Cap PO QAM [facility] Ceftriaxone Sodium 1 gm in 50 mls @ 100 mls/hr 08/14/22 00:00 08/14/22 01:23 Rocephin 1 Gm/Ns 50 Ml IVPB Infused Q24H [facility] Infusion Lisinopril 40 mg 08/14/22 09:00 Lisinopril 20 Mg Tablet PO DAILY [facility] Ondansetron HCl 4 mg 08/13/22 18:41 Ondansetron Inj 4 Mg/2 Ml Vial IV PUSH Q4H PRN Nausea Simvastatin 20 mg 08/14/22 00:15 08/14/22 00:52 Simvastatin 20 Mg Tablet PO 20 mg QHS [facility] Administration Radiology Results: ITS Impressions Abdomen/P
[2022-08-14 08:12] VITALS: BP 132/65; PULSE 68
[2022-08-14] MEDS: lisinopriL 20 MG TABLET 40 MG PO (08:14)
[2022-08-14] MEDS: OMEGA 3 POLYUNSAT FATTY ACIDS 1 GM CAP PO (08:14)
[2022-08-14] MEDS: ASPIRIN 81 MG ENTERIC TABLET PO (08:14)
[2022-08-14 08:15] VITALS: PULSE 68
[2022-08-14] MEDS: carvediloL 25 MG TABLET PO (08:15)
[2022-08-14 09:46] LABS: Basophils Percent Auto 0.5 % (0.2-1.2); Eosinophils Absolute Auto 0.4 K/mm3 (0-0.3); Eosinophils Percent Auto 6.9 % (0-4.4); Hemoglobin 12.9 g/dL (14.0-18.0); Immature Granulocyte Absolute 0.01 K/mm3 (0.00-0.031); Immature Granulocyte Percent A 0.2 % (0-0.5); Lymphocytes Absolute Auto 1.52 K/mm3 (0.9-3.2); Lymphocytes Percent Auto 27.8 % (18.3-44.2); Mean Corpuscular HGB Conc 33.9 g/dl (32-36); Mean Corpuscular Hemoglobin 30.9 pg (26-34); Mean Corpuscular Volume 91.1 fl (80-100); Mean Platelet Volume 9.1 fl (7.4-10.4); Monocytes Absolute Auto 0.9 K/mm3 (0.1-0.6); Neutrophils Absolute Auto 2.6 K/mm3 (1.3-6.7); Neutrophils Percent Auto 47.6 % (45.5-73.1); Platelet Count Result 173 k/mm3 (150-375); Red Blood Count 4.17 M/mm3 (4.6-6.20); Red Cell Distribution Width 12.1 % (11.5-14.5); White Blood Count 5.5 K/mm3 (4.5-10.0)
--- NOTE | 2022-08-14 10:10 | ECG_ITS ---
Measurements Intervals [place] Rate: 60 P: 38 NH: 144 QRS: 14 QRSD: 122 T: 14 QT: 413 QTc: 413 Interpretive Statements SINUS RHYTHM INCOMPLETE RIGHT BUNDLE BRANCH BLOCK BORDERLINE ECG COMPARED TO ECG 03/09/2022 18:27:34 SINUS RHYTHM NOW PRESENT Electronically Signed On 08-14-2022 16:25:33 CDT by Christian Cota D.O.
[2022-08-14 10:21] LABS: Alanine Aminotransferase 17 U/L (6-50); Albumin Level 3.3 g/dL (3.5-5.1); Alkaline Phosphatase 31 U/L (38-126); Anion Gap 5 mmol/L (8-16); Aspartate Amino Transferase 22 U/L (17-59); Bilirubin,Total 0.4 mg/dL (0.2-1.3); Blood Urea Nitrogen 13 mg/dL (9-20); Calcium 7.7 mg/dL (8.4-10.2); Carbon Dioxide 26 mmol/L (22-30); Chloride 105 mmol/L (98-107); Estimated CRCL calculation 102 ml/min; Estimated Glomerular Filt Rate > 60; Glucose 96 mg/dL (65-110); Potassium 3.1 mmol/L (3.4-5.0); Sodium 136 mmol/L (137-145)
[2022-08-14 10:39] LABS: Troponin I < 0.012 ng/mL (0.000-0.034)
[2022-08-14 10:45] LABS: Procalcitonin 0.1 ng/mL
--- NOTE | 2022-08-14 13:38 | PM.DS ---
DS: Admitting Diagnosis Discharge Date 08/14/22 Admitting Diagnosis abdominal pain DS: Discharge Diagnosis Discharge Diagnosis (1) Ascites: Code(s): R18.8 - Other ascites Status: Acute Assessment and Plan: status post dx paracentesis, cell count showed above 600 nucleated cells uncharacterized cultures pending, neutrophil count less than 25% patient is currently on Rocephin for SBP prophylaxis LFTs wnl, check CRP, PCT, LA--all wnl (2) Enteritis: Code(s): K52.9 - Noninfective gastroenteritis and colitis, unspecified Status: Acute Assessment and Plan: stool cultures are pending ova and parasite pending viral PCR pending supportive care monitor off IVF while on CLD for now (3) Elevated troponin: Code(s): R77.8 - Other specified abnormalities of plasma proteins Status: Acute Assessment and Plan: patient with history of Brugada syndrome, status post AICD placement chest pain-free, trend troponins, check ECG (4) Brugada syndrome: Code(s): I49.8 - Other specified cardiac arrhythmias Status: Acute Assessment and Plan: status post AICD (5) Watery diarrhea: Code(s): R19.7 - Diarrhea, unspecified Status: Acute Assessment and Plan: stool studies pending supportive care continue to monitor Plan DVT prophylaxis with SCDs GI prophylaxis not indicated Code status full code DS: Summary Hospital Course Hospital Course: 42-year-old male with history of her got a status post ICD implantation is presenting with abdominal pain and watery diarrhea for [address] exam showed enteritis, ascites and diffuse anasarca through the bowel. He was noted to have dehydration. All symptoms resolved with IV fluids. Paracentesis performed, initial workup negative. He was given a dose of Rocephin for SBP prophylaxis. Initial peritoneal studies unremarkable. Mildly elevated nucleated cells. Patient eager to go home. Suspect viral etiology. Recommend close outpatient follow-up by GI for colonoscopy and to confirm resolution of patient's ascites/anasarca. Extensive time spent discussing results and pending testing with patient and family. Will d/c on cipro for 5 days in case there was an underlying bacterial infection/SBP. Educated family on importance of following up with family doctor and GI JESSA to have all testing followed up and confirm resolution. See above and med rec for details. Time Spent with Patient Time attestation: Total time spent providing and/or coordinating discharge services: Exam Narrative: General: No acute distress, alert and oriented per baseline HEENT: Atraumatic, normocephalic, mucous membranes moist CV: Regular rate and rhythm, S1, S2 Lungs: Clear to auscultation bilaterally, no rales or crackles noted, no wheezes, good air entry Abdomen: Soft, nontender, nondistended Extremities: Normal to inspection Skin: No rashes noted, no lesions or wounds seen Psych: Euthymic, normal affect DS: Data Data Completed and Pending Labs on day of discharge: Labs from last 24 hours 08/14/22 08/14/22 08/14/22 10:38 09:32 09:32 WBC 5.5 RBC 4.17 L Hgb 12.9 L D Hct 38.0 L MCV 91.1 MCH 30.9 MCHC 33.9 RDW 12.1 Plt Count 173 MPV 9.1 Immature Gran % (Auto) 0.2 Neut % (Auto) 47.6 Lymph % (Auto) 27.8 [place] % (Auto) 17.0 H Eos % (Auto) 6.9 H Baso % (Auto) 0.5 Lymph # (Auto) 1.52 [place] # (Auto) 0.9 H Eos # (Auto) 0.4 H Baso # (Auto) 0.0 Abs Immat Gran (auto) 0.01 Absolute Neuts (auto) 2.6 Absolute Nucleated RBC 0.0 Nucleated RBC % 0.0 PT INR APTT Sodium 136 L Potassium 3.1 L Chloride 105 Carbon Dioxide 26 Anion Gap 5 L BUN 13 D Creatinine 1.10 Estim Creat Clear Calc 102 Estimated GFR > 60 Glucose 96 Lactic Acid 1.0 Calcium 7.7 L Total Bilirubin 0.4
--- NOTE | 2022-08-14 16:32 | PC.NURSE ---
Dr Blanchard notified that one time dose of potassium that was ordered was NOT given prior to discharge.
[2022-08-20 20:00] LABS: Glucose Peritoneal Fluid 113 mg/dL; LDH Peritoneal Fluid 150 U/L (<63); Total Protein Peritoneal Fluid 5.2 g/dL
[2022-08-21 13:07] LABS: Amylase Peritoneal Fluid 12 U/L
[2022-08-21 22:18] LABS: Albumin Peritoneal Fluid 3.3 g/dL
== END 2022-08-14 15:55 | disposition home or self-care (01) ==
LOC: ANHED 19:12 → ANH2MED 08-14 08:00
PROVIDERS: Admitting Provider Internal Medicine; Emergency Provider Physician Assistant; Visit Provider Student in an Organized Health Care Education/Training Program
DX: R18.8 Other ascites (principal); K52.9 Noninfective gastroenteritis and colitis, unspecified; R77.8 Other specified abnormalities of plasma proteins; I49.8 Other specified cardiac arrhythmias; D64.9 Anemia, unspecified; I45.10 Unspecified right bundle-branch block; F10.90 Alcohol use, unspecified, uncomplicated; Z95.810 Presence of automatic (implantable) cardiac defibrillator; Z87.891 Personal history of nicotine dependence; Z79.82 Long term (current) use of aspirin; Z79.899 Other long term (current) drug therapy
CPT/HCPCS: 36415; 49083; 74177; 80053; 80074; 81001; 82042; 82150; 82945; 83605; 83615; 83690; 84145; 84157; 84484; 85025; 85610; 85730; 86140; 87070; 87075; 87205; 89051; 93005; 96361; 96365; 96372; 99285; A9270; G0378; G0379; J0500; J0696; J2543; J7030; Q9967

== ENCOUNTER 2022-10-22 20:18 | Inpatient (IN) | payer OTHER, SELFPAY ==
--- NOTE | ~2022-10-22 | CT_ITS ---
EXAMINATION: CT abdomen pelvis w con DATE: 10/22/2022 22:19 INDICATION: Abdomen pain with diarrhea. TECHNIQUE: Computed tomography (CT) of the abdomen and pelvis was performed with 100 cc Omnipaque 350 intravenous contrast. The dose-length product was 1056.81 mGy-cm. Automated exposure control and ite rative reconstruction technique were employed. COMPARISON: CT dated 08/13/2022. FINDINGS: Lung bases are unremarkable. Heart size normal. No significant pleural or pericardial effus ion. There is ascites. The liver, spleen, pancreas, adrenal glands and kidneys are unremarkable. There is a small exophytic right renal cyst. Gallbladder is present. No significant vascular abnormality. There is persistent ab normal distal small bowel wall thickening and mucosal hyperemia which has progressed, consistent with enteritis, most likely infectious or inflammatory. No free air. IMPRESSION: 1. Interval progression of lung segment of abnormal distal bowel wall thickening and mucosal hyperemi a, compatible with enteritis, most likely infectious or inflammatory. 2: Moderate ascites. Reviewed, dictated and finalized at location A. IMPRESSION: 1. Interval progression of lung segment of abnormal distal bowel wall thickenin g and mucosal hyperemia, compatible with enteritis, most likely infectious or i nflammatory. 2: Moderate ascites.
--- NOTE | ~2022-10-22 | XR_ITS ---
XR small bowel follow through DATE: 10/24/2022 13:46 INDICATION: Enteritis. Abdominal pain, diarrhea. TECHNIQUE: COMPARISON: 10/22/2022 CT abdomen pelvis 08/13/2022 CT abdomen pelvis FINDINGS: There is normal transit of contrast material through the small bowel, with contrast materia l material reaching the colon within 2 1/2 hours. No stricture or unusual mucosal fold thickening, di verticulum, ulceration or intraluminal mass lesion of the small bowel is detected. Normal appendix. IMPRESSION: No significant abnormality is demonstrated Normal appendix Reviewed, dictated and finalized at [facility]. Reviewed, dictated and finalized at location A.
--- NOTE | ~2022-10-22 | US_ITS ---
US abdomen limited DATE: 10/24/2022 10:24 INDICATION: The patient presented with an order for paracentesis. TECHNIQUE: Real-time imaging of the abdomen was performed COMPARISON: 10/22/2022 CT abdomen pelvis FINDINGS: There is a minimal amount of fluid adjacent to the liver. No accessible intra-abdominal flu id collection is available for paracentesis. The procedure therefore was canceled. IMPRESSION: No accessible site for paracentesis; minimal ascites Reviewed, dictated and finalized at [facility]. Reviewed, dictated and finalized at location A.
[2022-10-22 20:26] VITALS: BP 152/109; PULSE 107; RESP 15; TEMP 36.6; O2SAT 99
[2022-10-22 20:45] LABS: Basophils Percent Auto 0.4 % (0.2-1.2); Eosinophils Absolute Auto 0.4 K/mm3 (0-0.3); Eosinophils Percent Auto 3.1 % (0-4.4); Hematocrit 50.2 % (42.0-52.0); Hemoglobin 17.2 g/dL (14.0-18.0); Immature Granulocyte Absolute 0.03 K/mm3 (0.00-0.031); Immature Granulocyte Percent A 0.3 % (0-0.5); Lymphocytes Absolute Auto 1.51 K/mm3 (0.9-3.2); Lymphocytes Percent Auto 13.6 % (18.3-44.2); Mean Corpuscular HGB Conc 34.3 g/dl (32-36); Mean Corpuscular Hemoglobin 30.8 pg (26-34); Mean Platelet Volume 9.2 fl (7.4-10.4); Monocytes Absolute Auto 0.9 K/mm3 (0.1-0.6); Monocytes Percent Auto 8.4 % (2.6-8.5); Neutrophils Absolute Auto 8.3 K/mm3 (1.3-6.7); Neutrophils Percent Auto 74.2 % (45.5-73.1); Platelet Count Result 247 k/mm3 (150-375); Red Blood Count 5.58 M/mm3 (4.6-6.20); Red Cell Distribution Width 12.6 % (11.5-14.5); White Blood Count 11.1 K/mm3 (4.5-10.0)
[2022-10-22 20:55] LABS: Alanine Aminotransferase 17 U/L (6-50); Albumin Level 4.6 g/dL (3.5-5.1); Alkaline Phosphatase 49 U/L (38-126); Anion Gap 10 mmol/L (8-16); Aspartate Amino Transferase 26 U/L (17-59); Bilirubin,Total 0.7 mg/dL (0.2-1.3); Blood Urea Nitrogen 18 mg/dL (9-20); Calcium 8.9 mg/dL (8.4-10.2); Carbon Dioxide 22 mmol/L (22-30); Chloride 104 mmol/L (98-107); Estimated CRCL calculation 101 ml/min; Estimated Glomerular Filt Rate > 60; Glucose 109 mg/dL (65-110); Lipase 44 U/L (23-300); Potassium 4.3 mmol/L (3.4-5.0); Sodium 136 mmol/L (137-145)
--- NOTE | 2022-10-22 22:57 | ED.NAVMDI ---
HPI - Nausea/Vomiting/Diarrhea General Chief complaint: Nausea/Vomiting/Diarrhea Stated complaint: multiple complaints Time Seen by Provider: 10/22/22 21:53 Source: patient Mode of arrival: ambulatory Limitations: no limitations History of Present Illness HPI Narrative: This is a 42 year old male that presents to the ER for abdominal pain and distension. Ongoing over the last 2 days. Associated with diarrhea. Reports feeling dehydrated. Reports a similar occurrence 2 months ago for which he was hospitalized. Denies fever, hematochezia, or melena. Related Data Home Medications Medication Instructions Recorded Confirmed aspirin 81 mg tablet,delayed 81 mg PO DAILY 03/10/22 08/13/22 release (Adult Low Dose Aspirin) carvedilol 25 mg tablet 25 mg PO BID 03/10/22 08/13/22 lisinopril 40 mg tablet 40 mg PO DAILY 03/10/22 08/13/22 omega-3 fatty acids-fish oil 684 1 cap PO DAILY 03/10/22 08/13/22 mg-1,200 mg capsule,delayed release simvastatin 20 mg tablet 20 mg PO QHS 03/10/22 08/13/22 Allergies Allergy/AdvReac Type Severity Reaction Status Date / Time poison yary extract Allergy Mild Rash Verified 03/10/22 05:16 Review of Systems Review of Systems: CONSTITUTIONAL: Denies fever GASTROINTESTINAL: Reports abdominal pain, nausea, and diarrhea. GENITOURINARY: Denies dysuria All systems reviewed & are unremarkable except as noted in HPI and below PMFSH Past Medical History Medical History (Updated 10/23/22 @ 00:16 by Amara Garza PA-C) Brugada syndrome Surgical History Surgical History AICD (automatic cardioverter/defibrillator) present Family History Family History (Updated 08/13/22 @ 22:37 by Elida Villar RN) Father Hypertension Sibling Leukemia Other Colon cancer Social History Social History Smoking status: Former smoker Tobacco type: cigarettes Alcohol intake: current Drinks per week: 8 Substance use: never Substance use type: does not use Lack of Transportation: No Lack of Food: Never True Current Housing: I Have Housing Concerned About Future Housing: No Difficulty Paying Gas/Electric Bills: No Difficulty Paying for Meds: No Currently Unemployed: No Education: High School Diploma/GED Difficulty w/ Childcare or Family Care: No Spiritual care concerns: No Exam Narrative: GENERAL: Well-appearing, well-nourished, and in no acute distress. HEAD: Normocephalic, atraumatic. EYES: EOMI. CHEST: Clear to auscultation. No respiratory distress. No wheezes rales or rhonchi HEART: Regular rate and rhythm. No murmur heard. Normal peripheral pulses. ABDOMEN: Soft, nondistended, normal active bowel sounds. Mild tenderness to palpation throughout the abdomen, without guarding EXTREMITIES: Normal range of motion. No edema. SKIN: Warm, dry, no rash. NEURO: No focal deficits. Alert and oriented x3. PSYCH: Normal mood and affect Course Course Emergency Course: Patient and family updated on workup and agree with admission Consultations Consultation #1: Spoke with Dr. Benavides who will consult Date: 10/22/22 Consultation #2: Spoke with hospitalist about patient and workup who accepts admission. Would like patient started on IV antibiotics and steroids Date: 10/22/22 Vital Signs Vital signs: Vital Signs Temperature 98 F 10/22/22 20:26 Pulse Rate 107 H 10/22/22 20:26 Respiratory Rate 15 10/22/22 20:26 Blood Pressure 152/109 H 10/22/22 20:26 Pulse Oximetry 99 10/22/22 20:26 Oxygen Delivery Room Air 10/22/22 20:26 Temperature 98 F 10/22/22 20:26 Pulse Rate 76 10/22/22 23:28 Respiratory Rate 15 10/22/22 23:28 Blood Pressure 168/96 H 10/22/22 23:28 Pulse Oximetry 98 10/22/22 23:28 Oxygen Delivery Room Air 10/22/22 20:26 MDM - Nausea/Vomiting/Diarrhea MDM Narrative Medical decision catherine
[2022-10-22 23:09] LABS: Bacteria Urine None Seen /hpf; Non Pathogenic Casts 0-2; Squamous Epithelial Cell Urine None seen /hpf (Few); WBC Urine 0-5 /hpf
[2022-10-22] MEDS: SODIUM CHLORIDE 0.9% IV 1,000 ML 999 ML IV CONT (23:16)
[2022-10-22] MEDS: MORPHINE SULFATE (*CRX) 4 MG/ML INJ IV PUSH (23:25)
[2022-10-22 23:28] VITALS: BP 168/96; PULSE 76; RESP 15; O2SAT 98
[2022-10-22] MEDS: ONDANSETRON INJ 4 MG/2 ML VIAL IV PUSH (23:28)
[2022-10-22 23:30] LABS: Appearance Urine Clear (Clear); Bilirubin Urine 1+ (Negative); Blood Urine Negative (Negative); Color Urine Yellow (Yellow); Glucose Urine UA Negative (Negative); Ketones Urine 3+ mg/dL (Negative); Leukocyte Esterase Ur Negative LEU/UL (Negative); Nitrate Urine Negative (Negative); Protein Urine Trace mg/dL (Negative); Specific Grav Ur <= 1.005 (1.001-1.035); Urobilinogen Urine 0.2 mg/dL (<2.0)
[2022-10-22 23:36] LABS: Add Urine Microscopic? YES
--- NOTE | 2022-10-22 23:40 | PM.IMHP ---
H&P: HPI History of Present Illness Date/Time: 10/22/22 23:40 Chief Complaint: Abdominal pain Narrative: This is a 42-year-old male with past medical history significant for hypertension, dyslipidemia, Brugada syndrome, AICD in place. Patient presents to the emergency room due to abdominal pain and diarrhea 3 diarrhea daily for the last 2 days or so patient denies any fevers, rigors, chills, weight loss, blood or mucus in the stool, no camping. Patient is been admitted for further evaluation management and treatment. EXAMINATION: CT abdomen pelvis w con DATE: 10/22/2022 22:19 INDICATION: Abdomen pain with diarrhea. TECHNIQUE: Computed tomography (CT) of the abdomen and pelvis was performed with 100 cc Omnipaque 350 intravenous contrast. The dose-length product was 1056.81 mGy-cm. Automated exposure control and iterative reconstruction technique were employed. COMPARISON: CT dated 08/13/2022. FINDINGS: Lung bases are unremarkable. Heart size normal. No significant pleural or pericardial effusion. There is ascites. The liver, spleen, pancreas, adrenal glands and kidneys are unremarkable. There is a small exophytic right renal cyst. Gallbladder is present. No significant vascular abnormality. There is persistent abnormal distal small bowel wall thickening and mucosal hyperemia which has progressed, consistent with enteritis, most likely infectious or inflammatory. No free air. IMPRESSION: 1. Interval progression of lung segment of abnormal distal bowel wall thickening and mucosal hyperemia, compatible with enteritis, most likely infectious or inflammatory. 2: Moderate ascites. Review of Systems Review of Systems: Abdominal pain, diarrhea Constitutional: Constitutional: Denies chills, Denies fatigue, Denies fever(s), Denies night sweats and Denies poor appetite Eyes: Eyes: Denies change in vision ENT: Denies dysphagia, Denies vertigo, Denies dizziness, Denies nasal congestion, Denies nasal obstruction and Denies odynophagia Cardiovascular: Cardiovascular: Denies chest pain at rest, Denies irregular heart rhythm, Denies radiating jaw, neck or arm pain and Denies palpitations Respiratory: Respiratory: Denies cough, Denies excessive phlegm production and Denies dyspnea on exertion Gastrointestinal: Gastrointestinal: Reports abdominal pain, Denies melena, Denies bloating, Denies hematochezia, Denies coffee ground emesis, Reports GI cramping, Denies dyspepsia, Denies heartburn, Reports diarrhea, Denies nausea, Denies vomiting and Denies hematemesis Genitourinary: Genitourinary: Denies dysuria Musculoskeletal: Musculoskeletal: Denies back pain, Denies myalgias, Denies arthralgias, Denies joint swelling, Denies muscle cramps and Denies muscle weakness Integumentary/Breasts: Skin/Breast: Denies rash Neurologic: Denies focal weakness, Denies Sensory deficit (Neuro), Denies disequilibrium and Denies weakness Psychiatric: Psychiatric: Reports no additional psychiatric complaints and Reports as per HPI Endocrine: Endocrine: Denies cold intolerance, Denies excessive sweating, Denies fatigue, Denies heat intolerance and Denies polyphagia Hematologic/Lymphatic: Hematologic/Lymphatic: Reports no additional hematologic/lymphatic complaints and Reports as per HPI Allergic/Immunologic: Allergic/Immunologic: Reports no additional allergic/immunologic complaints and Reports as per HPI PMFSH Past Medical History Medical History (Updated 10/23/22 @ 03:54 by Jane Erickson MD) Brugada syndrome Surgical History Surgical History AICD (automatic cardioverter/defibrillator) present Family History Family History Father Hypertension Sibling Leukemia Other Colon cancer Social History Social History Smoking status: Former smoker Tobacco type: cigar
[2022-10-23] MEDS: methylPREDNISolone SOD SUCC 40 MG VIAL 60 MG IV PUSH (00:05)
[2022-10-23] MEDS: levoFLOXacin 750 MG/D5W 150 ML 750 MG/150 ML BAG 100 MG IVPB (00:06)
[2022-10-23] MEDS: metroNIDAZOLE 500 MG/ISO 100ML 500 MG/100 ML BAG 100 MG IVPB ×3 (00:08→16:27)
[2022-10-23 00:46] LABS: Lactic Acid Reflex 0.7 mmol/L (0.7-2.0)
--- NOTE | 2022-10-23 01:40 | ADMGEN ---
This patient, Eran German, was admitted to Medical Room 243-01. Patient/family oriented to hospital policies and general routines including ID bracelet, bed and alarms, visiting hours, pain management, procedures, bathroom and other care routines, personal items, smoking policy, room service/diet, and visiting hours. Information on how to activate the Rapid Response Team has been discussed. Patient/Family are encouraged to report perceived risks to care and to ask questions if they do not understand what they are told or what they should do.
[2022-10-23 01:48] VITALS: BP 148/88; PULSE 81; RESP 18; TEMP 36.9; O2SAT 98
[2022-10-23] MEDS: SODIUM CHLORIDE 0.9% IV 1,000 ML 125 ML IV CONT ×3 (02:06→23:30)
[2022-10-23] MEDS: HYDROmorphone HCL INJ (*CRX) 1 MG/ML SYR 0.5 MG IV PUSH (04:47)
[2022-10-23] MEDS: methylPREDNISolone SOD SUCC 125 MG VIAL 60 MG IV PUSH ×4 (05:40→23:26)
[2022-10-23 06:00] VITALS: BP 129/72; PULSE 79; RESP 18; TEMP 37; O2SAT 96
[2022-10-23 07:48] LABS: Basophils Percent Auto 0.2 % (0.2-1.2); Hematocrit 41.6 % (42.0-52.0); Hemoglobin 14.2 g/dL (14.0-18.0); Immature Granulocyte Absolute 0.02 K/mm3 (0.00-0.031); Immature Granulocyte Percent A 0.4 % (0-0.5); Lymphocytes Absolute Auto 0.55 K/mm3 (0.9-3.2); Lymphocytes Percent Auto 10.6 % (18.3-44.2); Mean Corpuscular HGB Conc 34.1 g/dl (32-36); Mean Corpuscular Hemoglobin 30.8 pg (26-34); Mean Corpuscular Volume 90.2 fl (80-100); Mean Platelet Volume 9.2 fl (7.4-10.4); Monocytes Absolute Auto 0.1 K/mm3 (0.1-0.6); Monocytes Percent Auto 1.2 % (2.6-8.5); Neutrophils Absolute Auto 4.6 K/mm3 (1.3-6.7); Neutrophils Percent Auto 87.6 % (45.5-73.1); Platelet Count Result 212 k/mm3 (150-375); Red Blood Count 4.61 M/mm3 (4.6-6.20); Red Cell Distribution Width 12.4 % (11.5-14.5); White Blood Count 5.2 K/mm3 (4.5-10.0)
[2022-10-23 07:57] LABS: Alanine Aminotransferase 16 U/L (6-50); Albumin Level 3.7 g/dL (3.5-5.1); Alkaline Phosphatase 37 U/L (38-126); Anion Gap 11 mmol/L (8-16); Aspartate Amino Transferase 25 U/L (17-59); Bilirubin,Total 0.4 mg/dL (0.2-1.3); Blood Urea Nitrogen 17 mg/dL (9-20); Calcium 8.1 mg/dL (8.4-10.2); Carbon Dioxide 21 mmol/L (22-30); Chloride 103 mmol/L (98-107); Estimated CRCL calculation 123 ml/min; Estimated Glomerular Filt Rate > 60; Glucose 140 mg/dL (65-110); Potassium 4.2 mmol/L (3.4-5.0); Sodium 135 mmol/L (137-145)
--- NOTE | 2022-10-23 09:00 | PM.IMPN ---
Progress Note: A&P Assessment and Plan (1) Enteritis: Code(s): K52.9 - Noninfective gastroenteritis and colitis, unspecified Status: Acute Assessment and Plan: Presented to the ED with complaints of abdominal pain and diarrhea for the last [address] of the abdomen and pelvis showed distal bowel wall thickening and mucosal hyeremia compatible with enterisitis, moderate ascites GI consulted Continue Levaquin and Flagyl for now Continue steroids, wean as per symptoms Clear liquid diet initiated add pain medications as indicated WBC slightly elevated at 11.1 CRP in the am Trend labs De-escalate when appropriate (2) Diarrhea: Qualifiers: Diarrhea type: unspecified type Qualified Code(s): R19.7 - Diarrhea, unspecified Code(s): R19.7 - Diarrhea, unspecified Status: Acute Assessment and Plan: Stool cultures ordered Continue antibiotic Most likely related to enteritis Continue IV fluids No noted episodes over night (3) Brugada syndrome: Code(s): I49.8 - Other specified cardiac arrhythmias Status: Acute Assessment and Plan: AICD in place History and chronic HR stable (4) Ascites: Qualifiers: Ascites type: other type Qualified Code(s): R18.8 - Other ascites Code(s): R18.8 - Other ascites Status: Acute Assessment and Plan: Seen on CT Appears to have been drained on 08/14/22 No appearance of infection according to the labs Consider paracentesis (5) Hypertension: Qualifiers: Hypertension type: primary hypertension Qualified Code(s): I10 - Essential (primary) hypertension Code(s): I10 - Essential (primary) hypertension Status: Acute Assessment and Plan: BP is elevated at 152/109 upon arrival Current BP is Carvedilol, lisinopril Continue home medication Trend BP Adjust therapy as indicated Time Spent With Patient Time: 48 minutes Time with patient: Greater than 35 minutes Subjective Date/time seen: 10/23/22 09 Interval history: 10/23/22 09 Currently patient is lying in bed. Patient stated that he is no longer having any pain, discomfort, diarrhea, fevers, sweats, chills, chest pain shortness a breath, nausea or vomiting. Patient stated that he does feel whole lot better than he did when he came in. He also stated that he would really like to have a clear soda. No pain was noted during palpation. Did talk to Dr. Benavides who stated if it appears that he looks and feels better we can try him on clear liquids at this time. 10/22/22? 23:40 This is a 42-year-old male with past medical history significant for hypertension, dyslipidemia, Brugada syndrome, AICD in place.? Patient presents to the emergency room due to abdominal pain and diarrhea 3 diarrhea daily for the last 2 days or so patient denies any fevers, rigors, chills, weight loss, blood or mucus in the stool, no camping.? Patient is been admitted for further evaluation management and treatment. Review of Systems Review of Systems: All systems reviewed & are unremarkable except as noted in HPI and below Exam Narrative: General: well-nourished, well-appearing 42-year-old male, sitting up in bed, comfortable, NARD Neuro: awake, alert and oriented x4, speech clear, no focal neuro deficits noted HEENMT: normocephalic, atraumatic, EOMI, sclerae anicteric, moist oral mucosa Respiratory: Clear to auscultation bilaterally without crackles, rhonchi or wheezes, nonlabored breathing Cardio: regular rate, regular rhythm with S1-S2 Abdomen: nondistended, normoactive bowel sounds, soft, nontender to palpation Extremities: no edema, erythema, or tenderness to palpation, DP pulses 2+ bilaterally Skin: no rashes or lesions, warm and dry Psych: appropriate mood and affect, judgment and insight intact Objective Data Vital Signs Vital Signs
--- NOTE | 2022-10-23 09:00 | P.PNIM_ITS ---
Progress Note: A&P Assessment and Plan (1) Enteritis: Code(s): K52.9 - Noninfective gastroenteritis and colitis, unspecified Status: Acute Assessment and Plan: * Presented to the ED with complaints of abdominal pain and diarrhea for the last 2 days * CT of the abdomen and pelvis showed distal bowel wall thickening and mucosal hyeremia compatible with enterisitis, moderate ascites * GI consulted * Continue Levaquin and Flagyl for now * Continue steroids, wean as per symptoms * Clear liquid diet initiated * add pain medications as indicated * WBC slightly elevated at 11.1 * CRP in the am * Trend labs * De-escalate when appropriate (2) Diarrhea: Qualifiers: Diarrhea type: unspecified type Qualified Code(s): R19.7 - Diarrhea, unspecified Code(s): R19.7 - Diarrhea, unspecified Status: Acute Assessment and Plan: * Stool cultures ordered * Continue antibiotic * Most likely related to enteritis * Continue IV fluids * No noted episodes over night (3) Brugada syndrome: Code(s): I49.8 - Other specified cardiac arrhythmias Status: Acute Assessment and Plan: * AICD in place * History and chronic * HR stable (4) Ascites: Qualifiers: Ascites type: other type Qualified Code(s): R18.8 - Other ascites Code(s): R18.8 - Other ascites Status: Acute Assessment and Plan: * Seen on CT * Appears to have been drained on 08/14/22 * No appearance of infection according to the labs * Consider paracentesis (5) Hypertension: Qualifiers: Hypertension type: primary hypertension Qualified Code(s): I10 - Essential (primary) hypertension Code(s): I10 - Essential (primary) hypertension Status: Acute Assessment and Plan: * BP is elevated at 152/109 upon arrival * Current BP is Carvedilol, lisinopril * Continue home medication * Trend BP * Adjust therapy as indicated Time Spent With Patient Time: 48 minutes Time with patient: Greater than 35 minutes Subjective Date/time seen: 10/23/22899 Interval history: 10/23/22899 Currently patient is lying in bed. Patient stated that he is no longer having any pain, discomfort, diarrhea, fevers, sweats, chills, chest pain shortness a breath, nausea or vomiting. Patient stated that he does feel whole lot better than he did when he came in. He also stated that he would really like to have a clear soda. No pain was noted during palpation. Did talk to Dr. Benavides who stated if it appears that he looks and feels better we can try him on clear liquids at this time. 10/22/22? 23:40 This is a 42-year-old male with past medical history significant for hypertension, dyslipidemia, Brugada syndrome, AICD in place.? Patient presents to the emergency room due to abdominal pain and diarrhea 3 diarrhea daily for the last 2 days or so patient denies any fevers, rigors, chills, weight loss, blood or mucus in the stool, no camping.? Patient is been admitted for further evaluation management and treatment. Review of Systems Review of Systems: All systems reviewed & are unremarkable except as noted in HPI and below Exam Narrative: General: well-nourished, well-appearing 42-year-old male, sitting up in bed, comfortable, NARD Neuro: awake, alert and oriented x4, speech clear, no focal neuro defic
[2022-10-23] MEDS: ENOXAPARIN 40 MG/0.4 ML SYRINGE SUB-Q (09:01)
[2022-10-23 14:00] VITALS: BP 136/69; PULSE 77; RESP 18; TEMP 36.3; O2SAT 97
--- NOTE | 2022-10-23 16:37 | WPDGICN ---
Assessment and Plan Assessment and plan (1) Enteritis: Code(s): K52.9 - Noninfective gastroenteritis and colitis, unspecified Status: Acute Assessment and Plan: this is second presentation stool samples pending started on antibiotics he will need colonoscopy and egd at some point (also need to assess if changes of portal hypertension since he had ascites but no obvious changes of liver disease) tolerating liquid diet will need to get SBFT at some point (2) Ascites: Qualifiers: Ascites type: other type Qualified Code(s): R18.8 - Other ascites Code(s): R18.8 - Other ascites Status: Acute Assessment and Plan: we will get studies again last time elevated ldh, normal albumin 3.3 (probably this is not related to portal hypertension and will need to find other causes of ascites in non-cirrhotic)- get tb status, cytology, etc (3) Brugada syndrome: Code(s): I49.8 - Other specified cardiac arrhythmias Status: Acute (4) Watery diarrhea: Code(s): R19.7 - Diarrhea, unspecified Status: Acute Assessment and Plan: better on treatment GI Consult Note Consult date/time: 10/23/22 16:37 Reason for consult: abdominal pain, ascites HPI: Eran German is a 42 year old male with past medical history significant for hypertension, dyslipidemia, Brugada syndrome s/p AICD in place for about 8 years. About 2 months ago had similar presentation with acute onset of abdominal pain, found to have enteritis and ascites, drained about 250ml, ldh 150, cell count 650 but no sbp- had low neutrophil count, albumin 3.3 (still treated empirically with antibiotics). He did not have follow-up with doctor since did not have any more problem until about ?3 days ago that noted again abdominal distension with pain, also diarrhea, denies any fevers, blood or mucus in the stool. CT scan again showed enteritis and small amount ascites. No history of liver disease, liver imaging was normal, normal platelets and liver enzymes. He drinks alcohol but he is not alcoholic. Hepatitis panel negative. He never had scopes. Review of Systems Constitutional: Constitutional: Denies chills Eyes: Eyes: Denies blurry vision ENT: Reports Normal hearing present Cardiovascular: Cardiovascular: Denies chest pain Respiratory: Respiratory: Denies cough Gastrointestinal: Gastrointestinal: Reports abdominal pain Genitourinary: Genitourinary: Denies dysuria Musculoskeletal: Musculoskeletal: Denies neck pain Integumentary/Breasts: Skin/Breast: Denies rash Neurologic: Denies Abnormal speech present Psychiatric: Psychiatric: Denies behavioral changes [facility] Past Medical History Medical History (Updated 10/23/22 @ 07:18 by [facility]) Brugada syndrome Surgical History Surgical History AICD (automatic cardioverter/defibrillator) present Family History Family History Father Hypertension Sibling Leukemia Other Colon cancer Social History Social History Smoking status: Former smoker Tobacco type: cigarettes Alcohol intake: current Drinks per week: 1 Substance use: never Substance use type: does not use Lack of Transportation: No Lack of Food: Never True Current Housing: I Have Housing Concerned About Future Housing: No Difficulty Paying Gas/Electric Bills: No Difficulty Paying for Meds: No Currently Unemployed: YES Education: High School Diploma/GED Difficulty w/ Childcare or Family Care: No Spiritual care concerns: No Meds Home Medications and Allergies Home Medications Medication Instructions Recorded Confirmed Type aspirin 81 mg tablet,delayed 81 mg PO DAILY 03/10/22 10/23/22 History release (Adult Low Dose Aspirin) carvedilol 25 mg tablet 25 mg
[2022-10-23 17:39] VITALS: PULSE 78
[2022-10-23] MEDS: carvediloL 25 MG TABLET PO (17:39)
[2022-10-23 20:00] VITALS: PULSE 78; RESP 18; O2SAT 97
[2022-10-23] MEDS: SIMVASTATIN 20 MG TABLET PO (20:42)
[2022-10-23 21:24] VITALS: BP 154/80; PULSE 78; RESP 18; TEMP 36.4; O2SAT 97
[2022-10-23] MEDS: levoFLOXacin 250 MG/D5W 50 ML 250 MG/50 ML BAG 50 MG IVPB (23:26)
[2022-10-24] MEDS: metroNIDAZOLE 500 MG/ISO 100ML 500 MG/100 ML BAG 100 MG IVPB ×3 (00:55→17:31)
[2022-10-24] MEDS: ONDANSETRON INJ 4 MG/2 ML VIAL IV PUSH ×2 (03:32→09:59)
[2022-10-24 03:35] VITALS: BP 151/96; PULSE 84; RESP 16; TEMP 36.4; O2SAT 99
[2022-10-24] MEDS: methylPREDNISolone SOD SUCC 125 MG VIAL 60 MG IV PUSH ×3 (05:23→19:37)
[2022-10-24 06:00] VITALS: BP 144/71; PULSE 76; RESP 18; TEMP 36.2; O2SAT 98
[2022-10-24 06:00] LABS: Basophils Percent Auto 0.2 % (0.2-1.2); Hematocrit 36.6 % (42.0-52.0); Hemoglobin 12.6 g/dL (14.0-18.0); Immature Granulocyte Absolute 0.04 K/mm3 (0.00-0.031); Immature Granulocyte Percent A 0.3 % (0-0.5); Lymphocytes Absolute Auto 0.89 K/mm3 (0.9-3.2); Lymphocytes Percent Auto 7.4 % (18.3-44.2); Mean Corpuscular HGB Conc 34.4 g/dl (32-36); Mean Corpuscular Hemoglobin 31.2 pg (26-34); Mean Corpuscular Volume 90.6 fl (80-100); Mean Platelet Volume 9.7 fl (7.4-10.4); Monocytes Absolute Auto 0.5 K/mm3 (0.1-0.6); Monocytes Percent Auto 3.8 % (2.6-8.5); Neutrophils Absolute Auto 10.6 K/mm3 (1.3-6.7); Neutrophils Percent Auto 88.3 % (45.5-73.1); Platelet Count Result 212 k/mm3 (150-375); Red Blood Count 4.04 M/mm3 (4.6-6.20); Red Cell Distribution Width 12.3 % (11.5-14.5)
[2022-10-24 06:08] LABS: INR 1.2; Prothrombin Time 15.5 Seconds (11.1-14.7)
[2022-10-24 06:09] LABS: Partial Thromboplastin Time 31.1 SECONDS (22.3-36.8)
[2022-10-24 06:11] LABS: Alanine Aminotransferase 16 U/L (6-50); Albumin Level 3.9 g/dL (3.5-5.1); Alkaline Phosphatase 43 U/L (38-126); Anion Gap 7 mmol/L (8-16); Aspartate Amino Transferase 29 U/L (17-59); Bilirubin,Total 0.3 mg/dL (0.2-1.3); Blood Urea Nitrogen 16 mg/dL (9-20); CRP 1.4 mg/dL (<1.0); Calcium 8.6 mg/dL (8.4-10.2); Carbon Dioxide 23 mmol/L (22-30); Chloride 105 mmol/L (98-107); Estimated CRCL calculation 123 ml/min; Estimated Glomerular Filt Rate > 60; Glucose 143 mg/dL (65-110); Lactate Dehydrogenase 116 U/L (120-246); Magnesium 1.9 mg/dL (1.6-2.3); Potassium 3.9 mmol/L (3.4-5.0); Sodium 135 mmol/L (137-145)
[2022-10-24] MEDS: HYDROmorphone HCL INJ (*CRX) 1 MG/ML SYR IV PUSH ×2 (06:14→20:33)
--- NOTE | 2022-10-24 07:23 | P.PNIM_ITS ---
Progress Note: A&P Assessment and Plan (1) Enteritis: Code(s): K52.9 - Noninfective gastroenteritis and colitis, unspecified Status: Acute Assessment and Plan: * Presented to the ED with complaints of abdominal pain and diarrhea for the last 2 days * CT of the abdomen and pelvis showed distal bowel wall thickening and mucosal hyeremia compatible with enterisitis, moderate ascites * GI consulted-recommending small bowel follow through, EGD, and colonoscopy at some point. Plan for dx paracentesis. Consider non-cirrhotic causes of ascites given normal albumin level. * Continue Levaquin and Flagyl for now * Continue steroids, wean as per symptoms * Clear liquid diet initiated. Tolerated well yesterday but today having pain after SBFT. SBFT was negative though so will restart clears * add pain medications as indicated * WBC slightly elevated at 11.1 * CRP in the am mildy elevated 1.4 * Trend labs * De-escalate when appropriate (2) Diarrhea: Qualifiers: Diarrhea type: unspecified type Qualified Code(s): R19.7 - Diarrhea, unspecified Code(s): R19.7 - Diarrhea, unspecified Status: Acute Assessment and Plan: * Stool cultures ordered * Continue antibiotic * Most likely related to enteritis * Continue IV fluids * No noted episodes over night (3) Brugada syndrome: Code(s): I49.8 - Other specified cardiac arrhythmias Status: Acute Assessment and Plan: * AICD in place * History and chronic * HR stable (4) Ascites: Qualifiers: Ascites type: other type Qualified Code(s): R18.8 - Other ascites Code(s): R18.8 - Other ascites Status: Acute Assessment and Plan: * Seen on CT * Appears to have been drained on 08/14/22 * No appearance of infection according to the labs * Consider paracentesis (5) Hypertension: Qualifiers: Hypertension type: primary hypertension Qualified Code(s): I10 - Essential (primary) hypertension Code(s): I10 - Essential (primary) hypertension Status: Acute Assessment and Plan: * BP is elevated at 152/109 upon arrival * Current BP is Carvedilol, lisinopril * Continue home medication * Trend BP * Adjust therapy as indicated Plan Unable to safely complete paracentesis due to lack of substantial fluid Small-bowel follow-through was negative Clear liquid diet Pain control Subjective Date/time seen: 10/24/22 07:23 Interval history: 10/24/22 1451 Patient seen after small-bowel follow-through. He is having pain and nausea currently. He rates his pain a 4 to 5/10. He says that yesterday he was doing well and tolerating a clear liquid diet. He is tearful during our conversation because he is frustrated with lack of answers related to his pain. He says he was here a couple months ago with similar situation. Diagnostic paracentesis was unable to be completed today because there was not enough fluid. Small- bowel follow-through shows no abnormality. 10/23/22 0900 Currently patient is lying in bed. Patient stated that he is no longer having any pain, discomfort, diarrhea, fevers, sweats, chills, chest pain shortness a breath, nausea or vomiting. Patient stated that he does feel whole lot better than he did when he came in. He also stated that he would really like to have a clear soda. No pain was noted during palpation. Did talk to Dr. Kennedy mcintyre
--- NOTE | 2022-10-24 07:23 | PM.IMPN ---
Progress Note: A&P Assessment and Plan (1) Enteritis: Code(s): K52.9 - Noninfective gastroenteritis and colitis, unspecified Status: Acute Assessment and Plan: Presented to the ED with complaints of abdominal pain and diarrhea for the last [address] of the abdomen and pelvis showed distal bowel wall thickening and mucosal hyeremia compatible with enterisitis, moderate ascites GI consulted-recommending small bowel follow through, EGD, and colonoscopy at some point. Plan for dx paracentesis. Consider non-cirrhotic causes of ascites given normal albumin level. Continue Levaquin and Flagyl for now Continue steroids, wean as per symptoms Clear liquid diet initiated. Tolerated well yesterday but today having pain after SBFT. SBFT was negative though so will restart clears add pain medications as indicated WBC slightly elevated at 11.1 CRP in the am mildy elevated 1.4 Trend labs De-escalate when appropriate (2) Diarrhea: Qualifiers: Diarrhea type: unspecified type Qualified Code(s): R19.7 - Diarrhea, unspecified Code(s): R19.7 - Diarrhea, unspecified Status: Acute Assessment and Plan: Stool cultures ordered Continue antibiotic Most likely related to enteritis Continue IV fluids No noted episodes over night (3) Brugada syndrome: Code(s): I49.8 - Other specified cardiac arrhythmias Status: Acute Assessment and Plan: AICD in place History and chronic HR stable (4) Ascites: Qualifiers: Ascites type: other type Qualified Code(s): R18.8 - Other ascites Code(s): R18.8 - Other ascites Status: Acute Assessment and Plan: Seen on CT Appears to have been drained on 08/14/22 No appearance of infection according to the labs Consider paracentesis (5) Hypertension: Qualifiers: Hypertension type: primary hypertension Qualified Code(s): I10 - Essential (primary) hypertension Code(s): I10 - Essential (primary) hypertension Status: Acute Assessment and Plan: BP is elevated at 152/109 upon arrival Current BP is Carvedilol, lisinopril Continue home medication Trend BP Adjust therapy as indicated Plan Unable to safely complete paracentesis due to lack of substantial fluid Small-bowel follow-through was negative Clear liquid diet Pain control Subjective Date/time seen: 10/24/22 07:23 Interval history: 10/24/22 1451 Patient seen after small-bowel follow-through. He is having pain and nausea currently. He rates his pain a 4 to 5/10. He says that yesterday he was doing well and tolerating a clear liquid diet. He is tearful during our conversation because he is frustrated with lack of answers related to his pain. He says he was here a couple months ago with similar situation. Diagnostic paracentesis was unable to be completed today because there was not enough fluid. Small-bowel follow-through shows no abnormality. 10/23/22 0900 Currently patient is lying in bed. Patient stated that he is no longer having any pain, discomfort, diarrhea, fevers, sweats, chills, chest pain shortness a breath, nausea or vomiting. Patient stated that he does feel whole lot better than he did when he came in. He also stated that he would really like to have a clear soda. No pain was noted during palpation. Did talk to Dr. Benavides who stated if it appears that he looks and feels better we can try him on clear liquids at this time. 10/22/22? 23:40 This is a 42-year-old male with past medical history significant for hypertension, dyslipidemia, Brugada syndrome, AICD in place.? Patient presents to the emergency room due to abdominal pain and diarrhea 3 diarrhea daily for the last 2 days or so patient denies any fevers, rigors, chills, weight loss, blood or mucus in the stool, no camping.? Patient is been admitted for further evaluation
[2022-10-24 14:00] VITALS: BP 146/66; PULSE 74; RESP 18; TEMP 36.6; O2SAT 99
[2022-10-24] MEDS: SODIUM CHLORIDE 0.9% IV 1,000 ML 125 ML IV CONT (15:30)
[2022-10-24] MEDS: FAMOTIDINE 20 MG/2 ML VIAL IV PUSH ×2 (15:30→20:24)
[2022-10-24] MEDS: KETOROLAC 30 MG/ML VIAL (*BKC) IV PUSH (15:31)
[2022-10-24 17:33] VITALS: PULSE 76
[2022-10-24] MEDS: carvediloL 25 MG TABLET PO (17:33)
[2022-10-24 19:48] VITALS: BP 136/71; PULSE 73; RESP 18; TEMP 36.3; O2SAT 98
[2022-10-24] MEDS: SIMVASTATIN 20 MG TABLET PO (20:24)
[2022-10-25] MEDS: KETOROLAC 30 MG/ML VIAL (*BKC) IV PUSH (00:20)
[2022-10-25] MEDS: SODIUM CHLORIDE 0.9% IV 1,000 ML 125 ML IV CONT (00:22)
[2022-10-25] MEDS: methylPREDNISolone SOD SUCC 125 MG VIAL 60 MG IV PUSH ×2 (00:31→06:14)
[2022-10-25] MEDS: levoFLOXacin 250 MG/D5W 50 ML 250 MG/50 ML BAG 50 MG IVPB (00:33)
[2022-10-25] MEDS: metroNIDAZOLE 500 MG/ISO 100ML 500 MG/100 ML BAG 100 MG IVPB ×2 (01:33→09:02)
[2022-10-25] MEDS: HYDROmorphone HCL INJ (*CRX) 1 MG/ML SYR IV PUSH (02:00)
[2022-10-25 08:56] VITALS: PULSE 81
[2022-10-25] MEDS: ASPIRIN 81 MG ENTERIC TABLET PO (08:56)
[2022-10-25] MEDS: carvediloL 25 MG TABLET PO (08:56)
[2022-10-25] MEDS: OMEGA 3 POLYUNSAT FATTY ACIDS 1 GM CAP PO (08:57)
[2022-10-25] MEDS: lisinopriL 20 MG TABLET 40 MG PO (08:57)
[2022-10-25] MEDS: FAMOTIDINE 20 MG/2 ML VIAL IV PUSH (08:57)
[2022-10-25 09:08] LABS: Basophils Percent Auto 0.1 % (0.2-1.2); Hematocrit 35.3 % (42.0-52.0); Hemoglobin 11.9 g/dL (14.0-18.0); Immature Granulocyte Absolute 0.12 K/mm3 (0.00-0.031); Immature Granulocyte Percent A 0.9 % (0-0.5); Lymphocytes Absolute Auto 0.63 K/mm3 (0.9-3.2); Lymphocytes Percent Auto 4.9 % (18.3-44.2); Mean Corpuscular HGB Conc 33.7 g/dl (32-36); Mean Corpuscular Hemoglobin 31.3 pg (26-34); Mean Corpuscular Volume 92.9 fl (80-100); Mean Platelet Volume 9.5 fl (7.4-10.4); Monocytes Absolute Auto 0.3 K/mm3 (0.1-0.6); Monocytes Percent Auto 2.6 % (2.6-8.5); Neutrophils Absolute Auto 11.8 K/mm3 (1.3-6.7); Neutrophils Percent Auto 91.5 % (45.5-73.1); Platelet Count Result 184 k/mm3 (150-375); Red Cell Distribution Width 12.6 % (11.5-14.5); White Blood Count 12.9 K/mm3 (4.5-10.0)
[2022-10-25 09:16] LABS: Alanine Aminotransferase 18 U/L (6-50); Albumin Level 3.6 g/dL (3.5-5.1); Anion Gap 8 mmol/L (8-16); Aspartate Amino Transferase 27 U/L (17-59); Bilirubin,Total 0.4 mg/dL (0.2-1.3); Blood Urea Nitrogen 23 mg/dL (9-20); CRP 0.7 mg/dL (<1.0); Calcium 8.2 mg/dL (8.4-10.2); Carbon Dioxide 20 mmol/L (22-30); Chloride 106 mmol/L (98-107); Estimated CRCL calculation 123 ml/min; Estimated Glomerular Filt Rate > 60; Glucose 133 mg/dL (65-110); Potassium 4.4 mmol/L (3.4-5.0); Sodium 134 mmol/L (137-145)
[2022-10-25 09:35] LABS: Alkaline Phosphatase < 20 U/L (38-126)
--- NOTE | 2022-10-25 10:33 | WPDGIPROGNO ---
Progress Note: A&P Assessment and Plan (1) Enteritis: Code(s): K52.9 - Noninfective gastroenteritis and colitis, unspecified Status: Acute Assessment and Plan: clinically better stool samples pending no more diarrhea today will advance diet and probably home today will schedule egd and colonoscopy as outpatient SBFT unremarkable (2) Diarrhea: Qualifiers: Diarrhea type: unspecified type Qualified Code(s): R19.7 - Diarrhea, unspecified Code(s): R19.7 - Diarrhea, unspecified Status: Acute (3) Abdominal pain: Code(s): R10.9 - Unspecified abdominal pain Status: Acute Assessment and Plan: improved, will advance diet (4) Ascites: Qualifiers: Ascites type: other type Qualified Code(s): R18.8 - Other ascites Code(s): R18.8 - Other ascites Status: Acute Assessment and Plan: minimal amount, unable to get any sample no history of cirrhosis he can follow-up in office (5) Brugada syndrome: Code(s): I49.8 - Other specified cardiac arrhythmias Status: Acute Subjective Date/time seen: 10/25/22 10:33 Interval history: tolerating liquid diet, pain is almost gone and feeling much better after had barium test (completed SBFT), also yesterday ultrasound with minimal ascites- could not get sample. Review of Systems Review of Systems: All systems reviewed & are unremarkable except as noted in HPI and below Exam Const: General: comfortable and no acute distress HENMT: Face/Nose/Sinus: Normal nares present Eyes: General: appearance normal, both eyes and all related structures Neck: Neck: supple Resp: Auscultation: clear to auscultation bilaterally Cardio: Rate: regular rate Rhythm: regular rhythm GI: Inspection: non-distended GI Palp: Yes Soft to palpation and No Guarding due to palpation present (GI) Auscultation: normal bowel sounds Skin: General skin exam: normal color Neuro: Speech: normal speech Motor exam (neuro): 5/5 motor strength present throughout Extrem: General: normal to inspection Psych: Mental Status: mental status grossly normal Objective Data Vital Signs Vital Signs: Vital Signs - 24 hr 10/24/22 14:00 10/24/22 17:33 10/24/22 19:48 Temperature 97.9 F 97.3 F L Pulse Rate 74 76 73 Respiratory Rate 18 18 Blood Pressure 146/66 H 136/71 Pulse Oximetry 99 98 10/25/22 08:56 Temperature Pulse Rate 81 Respiratory Rate Blood Pressure Pulse Oximetry Intake/Output Intake/Output: Intake & Output 10/22/22 10/23/22 10/24/22 10/25/22 23:59 23:59 23:59 23:59 Intake Total 4880 2960 1590 Output Total 200 1750 Balance 4680 1210 1590 Meds/Results Medications: Active Medications Generic Name Dose Route Start Last Admin Trade Name Freq PRN Reason Stop Dose Admin Aspirin 81 mg 10/24/22 09:00 10/25/22 08:56 Aspirin 81 Mg Enteric Tablet PO 81 mg DAILY FELISHA Administration Carvedilol 25 mg 10/23/22 17:00 10/25/22 08:56 Carvedilol 25 Mg Tablet PO 25 mg BID FELISHA Administration Enoxaparin Sodium 40 mg 10/23/22 09:00 10/23/22 09:01 Enoxaparin 40 Mg/0.4 Ml Syringe SUB-Q 40 mg DAILY FELISHA Administration Famotidine 20 mg 10/24/22 15:00 10/25/22 08:57 Famotidine 20 Mg/2 Ml Vial IV PUSH 20 mg Q12HR FELISHA Administration Fish Oil 1 gm 10/24/22 09:00 10/25/22 08:57 [place] 3 Polyunsat Fatty Acids 1 Gm Cap PO 1 gm DAILY FELISHA Administration Hydromorphone HCl 1 mg 10/24/22 05:50 10/25/22 02:00 Hydromorphone Hcl Inj (*Crx) 1 Mg/Ml Syr IV PUSH 1 mg Q3H PRN Administration Pain Rated 7-10 Sodium Chloride 1,000 mls @ 125 mls/hr 10/22/22 23:55 10/25/22 00:22 Normal Saline Iv IV CONT 125 mls/hr .Q8H FELISHA Administration Levofloxacin/Dextrose 250 mg in 50 mls @ 50 mls/hr 10/24/22 00:00 10/25/22 01:33 Levaquin 250 Mg/D5w 50 Ml IVPB Infused Q24H FELISHA Infusion Metronidazole 500 mg in 100 mls @ 10
--- NOTE | 2022-10-25 13:33 | P.DS_ITS ---
DS: Admitting Diagnosis Discharge Date WednesdayOctober 25 Admitting Diagnosis Abdominal pain DS: Discharge Diagnosis Discharge Diagnosis (1) Enteritis: Code(s): K52.9 - Noninfective gastroenteritis and colitis, unspecified Status: Acute (2) Diarrhea: Qualifiers: Diarrhea type: unspecified type Qualified Code(s): R19.7 - Diarrhea, unspecified Code(s): R19.7 - Diarrhea, unspecified Status: Acute (3) Brugada syndrome: Code(s): I49.8 - Other specified cardiac arrhythmias Status: Acute (4) Ascites: Qualifiers: Ascites type: other type Qualified Code(s): R18.8 - Other ascites Code(s): R18.8 - Other ascites Status: Acute (5) Hypertension: Qualifiers: Hypertension type: primary hypertension Qualified Code(s): I10 - Essential (primary) hypertension Code(s): I10 - Essential (primary) hypertension Status: Acute Plan Assessment and Plan (1) Enteritis: ?Code(s): K52.9 - Noninfective gastroenteritis and colitis, unspecified ?Status:?Acute ?Assessment and Plan: * Presented to the ED with complaints of abdominal pain and diarrhea for the last 2 days * CT of the abdomen and pelvis showed distal bowel wall thickening and mucosal hyeremia compatible with enterisitis, moderate ascites * GI consulted-recommending small bowel follow through, EGD, and colonoscopy at some point. Plan for dx paracentesis. Consider non-cirrhotic causes of ascites given normal albumin level. * Continue Levaquin and Flagyl for now * Continue steroids, wean as per symptoms * Clear liquid diet initiated. Tolerated well yesterday but today having pain after SBFT. SBFT was negative though so will restart clears * add pain medications as indicated * WBC slightly elevated at 11.1 * CRP in the am mildy elevated 1.4 * Trend labs * De-escalate when appropriate ? (2) Diarrhea: ?Qualifiers: ?Diarrhea type:?unspecified type? Qualified Code(s):?R19.7 - Diarrhea, unspecified ?Code(s): R19.7 - Diarrhea, unspecified ?Status:?Acute ?Assessment and Plan: * Stool cultures ordered * Continue antibiotic * Most likely related to enteritis * Continue IV fluids * No noted episodes over night (3) Brugada syndrome: ?Code(s): I49.8 - Other specified cardiac arrhythmias ?Status:?Acute ?Assessment and Plan: * AICD in place * History and chronic * HR stable (4) Ascites: ?Qualifiers: ?Ascites type:?other type? Qualified Code(s):?R18.8 - Other ascites ?Code(s): R18.8 - Other ascites ?Status:?Acute ?Assessment and Plan: * Seen on CT * Appears to have been drained on 08/14/22 * No appearance of infection according to the labs * Consider paracentesis (5) Hypertension: ?Qualifiers: ?Hypertension type:?primary hypertension? Qualified Code(s):?I10 - Essential (primary) hypertension ?Code(s): I10 - Essential (primary) hypertension ?Status:?Acute ?Assessment and Plan: * BP is elevated at 152/109 upon arrival * Current BP is Carvedilol, lisinopril * Continue home medication? * Trend BP * Adjust therapy as indicated Plan Unable to safely complete paracentesis due to lack of substantial fluid Small-bowel follow-through was negative Clear liquid diet Pain control DS: Summary Hospital Course Hospital Course: Interval his
--- NOTE | 2022-10-25 13:33 | PM.DS ---
DS: Admitting Diagnosis Discharge Date WednesdayOctober 25 Admitting Diagnosis Abdominal pain DS: Discharge Diagnosis Discharge Diagnosis (1) Enteritis: Code(s): K52.9 - Noninfective gastroenteritis and colitis, unspecified Status: Acute (2) Diarrhea: Qualifiers: Diarrhea type: unspecified type Qualified Code(s): R19.7 - Diarrhea, unspecified Code(s): R19.7 - Diarrhea, unspecified Status: Acute (3) Brugada syndrome: Code(s): I49.8 - Other specified cardiac arrhythmias Status: Acute (4) Ascites: Qualifiers: Ascites type: other type Qualified Code(s): R18.8 - Other ascites Code(s): R18.8 - Other ascites Status: Acute (5) Hypertension: Qualifiers: Hypertension type: primary hypertension Qualified Code(s): I10 - Essential (primary) hypertension Code(s): I10 - Essential (primary) hypertension Status: Acute Plan Assessment and Plan (1) Enteritis: ?Code(s): K52.9 - Noninfective gastroenteritis and colitis, unspecified ?Status:?Acute ?Assessment and Plan: Presented to the ED with complaints of abdominal pain and diarrhea for the last [address] of the abdomen and pelvis showed distal bowel wall thickening and mucosal hyeremia compatible with enterisitis, moderate ascites GI consulted-recommending small bowel follow through, EGD, and colonoscopy at some point. Plan for dx paracentesis. Consider non-cirrhotic causes of ascites given normal albumin level. Continue Levaquin and Flagyl for now Continue steroids, wean as per symptoms Clear liquid diet initiated. Tolerated well yesterday but today having pain after SBFT. SBFT was negative though so will restart clears add pain medications as indicated WBC slightly elevated at 11.1 CRP in the am mildy elevated 1.4 Trend labs De-escalate when appropriate ? (2) Diarrhea: ?Qualifiers: ?Diarrhea type:?unspecified type? Qualified Code(s):?R19.7 - Diarrhea, unspecified ?Code(s): R19.7 - Diarrhea, unspecified ?Status:?Acute ?Assessment and Plan: Stool cultures ordered Continue antibiotic Most likely related to enteritis Continue IV fluids No noted episodes over night (3) Brugada syndrome: ?Code(s): I49.8 - Other specified cardiac arrhythmias ?Status:?Acute ?Assessment and Plan: AICD in place History and chronic HR stable (4) Ascites: ?Qualifiers: ?Ascites type:?other type? Qualified Code(s):?R18.8 - Other ascites ?Code(s): R18.8 - Other ascites ?Status:?Acute ?Assessment and Plan: Seen on CT Appears to have been drained on 08/14/22 No appearance of infection according to the labs Consider paracentesis (5) Hypertension: ?Qualifiers: ?Hypertension type:?primary hypertension? Qualified Code(s):?I10 - Essential (primary) hypertension ?Code(s): I10 - Essential (primary) hypertension ?Status:?Acute ?Assessment and Plan: BP is elevated at 152/109 upon arrival Current BP is Carvedilol, lisinopril Continue home medication? Trend BP Adjust therapy as indicated Plan Unable to safely complete paracentesis due to lack of substantial fluid Small-bowel follow-through was negative Clear liquid diet Pain control DS: Summary Hospital Course Hospital Course: Interval history: 10/25/22 1232 Patient clinically better today. He is tolerating a regular diet that was advanced by GI today. He denies nausea,vomiting, pain. He still has a mild leukocytosis of 12.9. Will continue p.o. antibiotics as an outpatient. His small-bowel follow-through was negative for acute process. GI is recommending EGD and colonoscopy as an outpatient. CRP that was initially mildly elevated is now resolved. 10/24/22 1451 Patient seen after small-bowel follow-through.? He is having pain and nausea currently.? He rates his pain a 4 to 5/10.? He s
[2022-10-25 14:00] VITALS: BP 143/72; PULSE 63; RESP 18; TEMP 36.3; O2SAT 98
[2022-10-27 11:29] LABS: NIL 0.01 IU/mL; Quantiferon TB Plus, 1T NEGATIVE (NEGATIVE)
== END 2022-10-25 15:00 | disposition home or self-care (01) | DRG 249 ==
LOC: ANHED 10-23 00:16 → ANH2MED 10-23 00:53
PROVIDERS: Emergency Medicine; Internal Medicine Gastroenterology; Nurse Practitioner; Admitting Provider Internal Medicine; Emergency Provider Physician Assistant; Visit Provider Nurse Practitioner Acute Care
DX: K52.9 Noninfective gastroenteritis and colitis, unspecified (principal); R18.8 Other ascites; I49.8 Other specified cardiac arrhythmias; I10 Essential (primary) hypertension; E78.5 Hyperlipidemia, unspecified; Z79.82 Long term (current) use of aspirin; Z95.810 Presence of automatic (implantable) cardiac defibrillator; Z87.891 Personal history of nicotine dependence
CPT/HCPCS: 36415; 74177; 74250; 76705; 80053; 81001; 83605; 83615; 83690; 83735; 85025; 85610; 85730; 86140; 86480; 87045; 87269; 87272; 87427; 87449; 89055; 96361; 96365; 96366; 96367; 96368; 96372; 96374; 96375; 96376; 99285; A9270; G0378; G0379; J1170; J1650; J1836; J1885; J1956; J2270; J2405; J2920; J2930; J7030; Q9967

== ENCOUNTER 2022-11-10 04:19 | Day surgery (SDC) | payer OTHER, SELFPAY ==
[2022-10-27 13:59] VITALS: BMI 33.9
[2022-11-10 07:57] VITALS: BP 162/93; PULSE 77; RESP 16; TEMP 36.6; O2SAT 97; BMI 33.7
[2022-11-10] MEDS: LACTATED RINGERS 1,000 ML 150 ML IV CONT (08:07)
--- NOTE | 2022-11-10 08:28 | WPDANESEPPF ---
Anes - Initial Pre Proc Eval Procedure: Operation Date: 11/10/22 09:15 Proposed Procedures p Esophagogastroduodenoscopy & Colonoscopy - Bryan Herr MD Date/Time: 11/10/22 08:28 Surgeon: Bryan Herr MD Pre Op Diagnosis: abdom. pain,Noninfective gastroenteritis/colitis Patient Data Age: 42 Gender: M Height: 1.83 m Weight: 112.7 kg Last Vital Signs Temp 36.6 C 11/10/22 07:57 Pulse 77 11/10/22 07:57 Resp 16 11/10/22 07:57 BP 162/93 H 11/10/22 07:57 Pulse Ox 97 11/10/22 07:57 O2 Del Method Room Air 11/10/22 07:57 Allergies Allergy/AdvReac Type Severity Reaction Status Date / Time poison yary extract Allergy Mild Rash Verified 11/10/22 07:56 Home Medications Medication Instructions Recorded Confirmed Type aspirin 81 mg tablet,delayed 81 mg PO DAILY 03/10/22 11/10/22 History release (Adult Low Dose Aspirin) carvedilol 25 mg tablet 25 mg PO BID 03/10/22 11/10/22 History lisinopril 40 mg tablet 40 mg PO DAILY 03/10/22 11/10/22 History omega-3 fatty acids-fish oil 684 1 cap PO DAILY 03/10/22 11/10/22 History mg-1,200 mg capsule,delayed release simvastatin 20 mg tablet 20 mg PO QHS 03/10/22 11/10/22 History Patient hx anesthesia problems: none Family hx anesthesia problems: none Results Review: All pre-operative results and documents have been reviewed as part of the pre-operative evaluation. [facility] Past Medical History Medical History Abdominal pain Brugada syndrome Surgical History Surgical History AICD (automatic cardioverter/defibrillator) present Family History Family History Father Hypertension Sibling Leukemia Other Colon cancer Social History Social History Smoking status: Current some day smoker Tobacco type: cigarettes and cigars Alcohol intake: former Drinks per week: 1 Substance use: never Substance use type: does not use Lack of Transportation: No Lack of Food: Never True Current Housing: I Have Housing Concerned About Future Housing: No Difficulty Paying Gas/Electric Bills: No Difficulty Paying for Meds: No Currently Unemployed: YES Education: High School Diploma/GED Difficulty w/ Childcare or Family Care: No Living arrangements: with family Spiritual care concerns: No Anes - Eval Final PreProcedure Day of Procedure 11/10/22 08:28 Patient weight: obese Heart: regular rate and rhythm Lungs: clear to auscultation Airway: Mallampati scale class II Neurological: alert and oriented Last oral intake: >/= 8 hours ASA classification: III Emergent: no Anesthetic plan: proceed Anesthesia type and monitoring: general GIVS and standard monitoring Results Review: All pre-operative results and documents have been reviewed as part of the pre-operative evaluation. Informed Consent: The patient's anesthetic plan and its attendant risks and benefits were discussed with the patient/family/POA. Questions were solicited and answers provided to the satisfaction of the patient/family/POA.
--- NOTE | 2022-11-10 08:49 | WPDHPUPDATE1 ---
History and Physical Update Update Date/Time: 11/10/22 08:49 History and Physical has been reviewed, including an updated exam of the patient. There are NO changes in the patient's condition. Risks, benefits, and alternatives have been discussed and questions answered. Patient agrees to proceed with procedure.
[2022-11-10 09:21] VITALS: BP 95/59; PULSE 62; RESP 20; O2SAT 97
[2022-11-10 09:31] VITALS: BP 106/67; PULSE 66; RESP 20; O2SAT 98
[2022-11-10 09:41] VITALS: BP 111/72; PULSE 57; RESP 20; O2SAT 97
== END 2022-11-10 09:50 | disposition home or self-care (01) ==
PROVIDERS: Visit Provider Internal Medicine Gastroenterology
PROC: 0DJ08ZZ Inspection of Upper Intestinal Tract, Via Natural or Artificial Opening Endoscopic (ICD-10-PCS; CPT 43235; principal; 2022-11-10 09:15)
DX: K29.70 Gastritis, unspecified, without bleeding (principal); Z87.19 Personal history of other diseases of the digestive system; I49.8 Other specified cardiac arrhythmias; Z95.810 Presence of automatic (implantable) cardiac defibrillator; Z79.82 Long term (current) use of aspirin; Z72.0 Tobacco use; E66.9 Obesity, unspecified; Z68.33 Body mass index [BMI] 33.0-33.9, adult
CPT/HCPCS: 45378; 43239; 88305; J2704; J7120